=== PATIENT | male | born 1990 | race Caucasian/White ===

== ENCOUNTER 2022-04-16 17:23 | Emergency (ER) | payer SELFPAY ==
[2022-04-16] VITALS (19 sets, daily range): BP systolic 123–180; BP diastolic 62–98; PULSE 70–103; RESP 9–48; TEMP 36.6; O2SAT 97–100
--- NOTE | 2022-04-16 17:43 | DI.CT.S_ITS ---
PROCEDURE: CT ABDOMEN PELVIS W CON INDICATIONS: severe abd pain TECHNIQUE: After the administration of intravenous contrast, axial sections acquired from the lung bases to the pubic symphysis. Coronal and sagittal reformats were performed. For radiation dose reduction, the following was used: automated exposure control, adjustment of mA and/or kV according to patient size. COMPARISON: None. FINDINGS: Image quality: Excellent. Lung bases: Unremarkable. Heart: No significant findings. ABDOMEN: Liver: Unremarkable. Gallbladder: Unremarkable. Biliary ducts: Unremarkable. Pancreas: Unremarkable. Spleen: Unremarkable. Adrenal Glands: Unremarkable. Kidneys and Ureters: The left kidney has a 1.2 x 0.9 cm stone in the renal pelvis. There is minimal left hydronephrosis with mild inflammatory changes around the renal pelvis. The stone is likely intermittently obstructive. No ureteral dilatation. Stomach and Bowel: Stomach, small bowel loops, and colon are unremarkable. The appendix is normal. Peritoneum: No abnormal intraperitoneal fluid. No free air. Ventral Wall: No hernias. Abdominal Nodes: No retroperitoneal or mesenteric adenopathy by size criteria. Vessels: Aorta and inferior vena cava are normal in size. PELVIS: Pelvic Organs: Unremarkable. Bladder: Unremarkable. Pelvic Nodes: No enlarged lymph nodes. Miscellaneous: No hernias are seen. Bones: Unremarkable. IMPRESSION: 1. 1.2 x 0.9 cm stone in the left renal pelvis. 2. Minimal left hydronephrosis and mild inflammatory changes around the renal pelvis, the stone is likely intermittently obstructive. 3. No other acute abdominal or pelvic abnormality. Dictated by: John Aldana M.D. on 04/16/2022 at 18:31 Approved by: John Aldana M.D. on 04/16/2022 at 18:36
[2022-04-16] MEDS: ONDANSETRON 4 MG/2 ML INJ IV (17:46)
[2022-04-16] MEDS: HYDROMORPHONE 1 MG INJ IV (17:46)
[2022-04-16] MEDS: SODIUM CHLORIDE 0.9% 1,000 ML 1000 ML IV (17:46)
[2022-04-16 17:52] LABS: Add Manual Diff / Slide Review NO; Basophils Absolute Auto 100 /uL (0-100); Basophils Percent Auto 0.9 % (0-2); Eosinophils Absolute Auto 100 /uL (0-450); Eosinophils Percent Auto 0.4 % (2-4); Hematocrit 42.6 % (41-53); Hemoglobin 15.2 g/dL (13.5-17.5); Lymphocytes Absolute Auto 1900 /uL (1100-4500); Lymphocytes Percent Auto 12.7 % (25-40); Mean Corpuscular HGB Conc 35.7 % (30-36); Mean Corpuscular Hemoglobin 31.4 PG (26-34); Mean Corpuscular Volume 87.9 fL (80-100); Monocytes Absolute Auto 900 /uL (0-900); Monocytes Percent Auto 5.8 % (3-14); Neutrophils Absolute Auto 11900 /uL (1500-7000); Neutrophils Percent Auto 80.2 % (50-75); Platelet Count 273 X10^3/uL (150-400); Red Blood Cell Count 4.84 X10^6/uL (4.5-5.9); Red Cell Distribution Width 12.9 % (11.6-14.8); White Blood Cell Count 14.9 X10^3/uL (4.5-11.0)
[2022-04-16 17:57] LABS: Alanine Aminotransferase 19 IU/L (<50); Albumin 4.6 g/dL (3.5-5.0); Albumin Globulin Ratio 1.5 (1.0-2.8); Alkaline Phosphatase 84 U/L (38-126); Aspartate Aminotransferase 22 IU/L (17-59); BUN Creatinine Ratio 13.3 (6-22); Bilirubin Total 0.7 mg/dL (0.2-1.3); Blood Urea Nitrogen 11 mg/dL (9-20); Calcium 9.3 mg/dL (8.4-10.2); Carbon Dioxide 21 mmol/L (22-32); Chloride 104 mmol/L (98-107); Estimated Glomerular Filt Rate > 60 mL/min (>60); Globulin 3.1 g/dL (1.7-4.1); Glucose 128 mg/dL (70-100); HEMOLYSIS < 15 (0-50); Lactate (Lactic Acid) 3.1 mmol/L (0.7-2.1); Lipase 47 U/L (23-300); Potassium 3.8 mmol/L (3.4-5.1); Sodium 139 mmol/L (137-145); Total Protein 7.7 g/dL (6.3-8.2)
[2022-04-16 17:58] LABS: Magnesium 1.9 mg/dL (1.6-2.3)
[2022-04-16] MEDS: HYDROMORPHONE 0.5 MG INJ IV ×3 (18:01→22:06)
--- NOTE | 2022-04-16 19:30 | ED_ITS ---
HPI - Abdominal Pain General Chief Complaint: Abdominal Pain Stated Complaint: severe abd pain Time Seen by Provider: 04/16/22 17:24 Source: patient and family Mode of arrival: Wheelchair Limitations: no limitations History of Present Illness HPI narrative: This is a 32-year-old male with possible lymphoma he is currently being worked up but in between insurance for spots in his lungs. He presents today with sev ere abdominal pain that is always been on the left side sometimes in the flank that comes and goes. He has been taking ibuprofen regularly for this sometimes up to 800 mg 3 or 4 times daily. Patient states today became quite severe just on the left, was having some nausea and vomiting as well as some diarrhea he is occasionally had blood in his stool. Patient denies any dysuria, urgency frequency or hematuria. Denies any syncope. He denies any chest pain or shortness of breath. Received pain medications and is feeling much improved. He denies any surgeries. Has never seen a urologist but has been told he is had kidney stones in the past but they were usually on the right. Patient denies any drug allergies. Related Data Previous Rx's Medication Instructions Recorded cephalexin 500 mg capsule 500 mg PO BID 7 days #14 caps 04/16/22 oxycodone 5 mg tablet 5 mg PO Q6H PRN pain #20 tabs 04/16/22 Allergies Allergy/AdvReac Type Severity Reaction Status Date / Time No Known Drug Allergies Allergy Verified 04/16/22 17:52 Review of Systems Review of Systems ROS Unobtainable: All systems reviewed & are unremarkable except as noted in HPI and below Patient History Social History Smoking Status: Current every day smoker Smoking Status: Current every day smoker alcohol intake frequency: 3 or more drinks per day Substance Use Type: marijuana Exam Narrative Exam Narrative: GENERAL: Alert and oriented x three, mild distress. HEENT: Head normocephalic, atraumatic, EOMI, pupils reactive, face symmetric, moist mucous membranes NECK: Supple, full range of motion CARDIOVASCULAR: Regular rate and rhythm without murmurs, rubs or gallops. RESPIRATORY: Breath sounds equal bilaterally, no wheezes rales or rhonchi. ABDOMEN: Soft, nontender. Normoactive bowel sounds all 4 quadrants. No guardi ng or rebound, rigidity, no mass : No CVA tenderness EXTREMITIES: Normal range of motion, no clubbing or edema. Neurovascularly intact NEUROLOGICAL: Cranial nerves II through XII grossly intact. Moving all extremities SKIN: Warm, dry, no petechiae, no rashes or lesions. Initial Vital Signs Initial Vital Signs: Vital Signs Pulse Rate 101 H 04/16/22 17:41 Respiratory Rate 40 H 04/16/22 17:41 Blood Pressure 155/89 H 04/16/22 17:41 Pulse Oximetry 97 04/16/22 17:41 Course Orders Ordered: ED Orders 04/16/22 20:33 UA Complete [Urinalysis and Microscopic] Stat Urine Culture Stat 04/16/22 21:31 Consult to WELLNESS MANAGER - Lining Stitcher Stat Discontinued Medications Cefazolin Sodium (Cephalexin 250 Mg Prepack) 1 bottle MISC SEEINSTR ONE Stop: 04/16/22 21:31 Last Admin: 04/16/22 22:05 Dose: 2 cap Documented By: MOSES Hydromorphone HCl (Hydromorphone 1 Mg Inj) 1 mg IV NOW ONE Stop: 04/16/22 17:43 Last Admin: 04/16/22 17:46 Dose: 1 mg Documented By: DANIELLE Hydromorphone HCl (Hydromorphone 0.5 Mg Inj) 0.5 mg IV Q15MIN PRN PRN Reason: Pain, Last Admin: 04/16/22 18:16 Dose: 0.5 mg Documented By: Admin: 04/16/22 18:01 Dose: 0.5 mg Documented By: DANIELLE Hydromorphone HCl (Hydromorphone 0.5 Mg Inj) 0.5 mg IV NOW ONE Stop: 04/16/22 21:31 Last Admin: 04/16/22 22:06 Dose: 0.5 mg Documented By: MOSES Sodium Chloride (Normal Saline 0.9%) 1,000 mls @ 1,000 mls/hr IV BOLUS ONE Stop: 04/16/22 18:41 Last Infusion: 04/16/22 19:58 Dose: 1,000 mls/hr Documented By: Admin: 04/16/22 17:46 Dose: 1,000 mls/hr Documented By: DANIELLE Ondansetron HCl (Ondansetron 4 Mg/2 Ml Inj) 4 mg IV NOW ONE Stop: 04/16/22 17:43 Last Admin: 04/16/22 17:46 Dose: 4 mg Documented By: DANIELLE Oxycodone/Acetaminophen (Oxycodone/Apap 5/325 Prepack) 1 bottle MISC SEEINSTR ONE Stop: 04/16/22 21:32 Last Admin: 04/16/22 22:06 Dose: 1 bottle Documented By: MOSES Consultations Consultation #1: Urology [facility], Dr. Sparrow Vital Signs Vital signs: Vital Signs - 8 hr 04/16/22 22:00 04/16/22 22:16 04/16/22 22:16 Pulse Rate 70 98 H Respiratory Rate 15 Blood Pressure 135/82 Pulse Oximetry 99 98 MDM - Abdominal Pain Lab Data Result diagrams: 04/16/22 17:35 04/16/22 17:35 Labs: Lab Results 04/16/22 04/16/22 04/16/22 Range/Units 17:35 17:35 17:35 WBC 14.9 H (4.5-11.0) X10^3/uL RBC 4.84 (4.5-5.9) X10^6/uL Hgb 15.2 (13.5-17.5) g/dL Hct 42.6 (41-53) % MCV 87.9 (80-100) fL MCH 31.4 (26-34) PG MCHC 35.7 (30-36) % RDW 12.9 (11.6-14.8) % Plt Count 273 (150-400) X10^3/uL Neut % (Auto) 80.2 H (50-75) % Lymph % (Auto) 12.7 L (25-40) % Freeborn % (Auto) 5.8 (3-14) % Eos % (Auto) 0.4 L (2-4) % Baso % (Auto) 0.9 (0-2) % Neut # (Auto) 00460 H (9469-4670) /uL Lymph # (Auto) 1900 (0497-1393) /uL Freeborn # (Auto) 900 (0-900) /uL Eos # (Auto) 100 (0-450) /uL Baso # (Auto) 100 (0-100) /uL Sodium 139 (137-145) mmol/L Potassium 3.8 (3.4-5.1) mmol/L Chloride 104 (98-107) mmol/L Carbon Dioxide 21 L (22-32) mmol/L BUN 11 (9-20) mg/dL Creatinine 0.83 (0.66-1.25) mg/dL Estimated GFR > 60 (>60) mL/min BUN/Creatinine Ratio 13.3 (6-22) Glucose 128 H (70-100) mg/dL Lactate 3.1 H (0.7-2.1) mmol/L Calcium 9.3 (8.4-10.2) mg/dL Magnesium (1.6-2.3) mg/dL Total Bilirubin 0.7 (0.2-1.3) mg/dL AST 22 (17-59) IU/L ALT 19 (<50) IU/L Alkaline Phosphatase 84 (38-126) U/L Total Protein 7.7 (6.3-8.2) g/dL Albumin 4.6 (3.5-5.0) g/dL Globulin 3.1 (1.7-4.1) g/dL Albumin/Globulin Ratio 1.5 (1.0-2.8) Lipase 47 (23-300) U/L Urine Color Urine Appearance Urine pH (4.5-8.0) Ur Specific Baxter (1.000-1.035) Urine Protein (Negative) Urine Glucose (UA) (Negative) g/dL Urine Ketones (NEGATIVE) Urine Occult Blood (Negative) Urine Nitrate (Negative) Urine Bilirubin (NEGATIVE) Urine Urobilinogen (0.2) E.U./dL Ur Leukocyte Esterase (NEGATIVE) Urine RBC (0-5/HPF) Urine WBC (0-5/HPF) Ur Squamous Epith Cells (0-5/HPF) Urine Bacteria (None) Urine Mucus (Negative) Ur Culture Indicated? 04/16/22 04/16/22 04/16/22 Range/Units 17:35 19:58 20:33 WBC (4.5-11.0) X10^3/uL RBC (4.5-5.9) X10^6/uL Hgb (13.5-17.5) g/dL Hct (41-53) % MCV (80-100) fL MCH (26-34) PG MCHC (30-36) % RDW (11.6-14.8) % Plt Count (150-400) X10^3/uL Neut % (Auto) (50-75) % Lymph % (Auto) (25-40) % Freeborn % (Auto) (3-14) % Eos % (Auto) (2-4) % Baso % (Auto) (0-2) % Neut # (Auto) (3414-8616) /uL Lymph # (Auto) (4977-6176) /uL Freeborn # (Auto) (0-900) /uL Eos # (Auto) (0-450) /uL Baso # (Auto) (0-100) /uL Sodium (137-145) mmol/L Potassium (3.4-5.1) mmol/L Chloride (98-107) mmol/L Carbon Dioxide (22-32) mmol/L BUN (9-20) mg/dL Creatinine (0.66-1.25) mg/dL Estimated GFR (>60) mL/min BUN/Creatinine Ratio (6-22) Glucose (70-100) mg/dL Lactate 1.2 (0.7-2.1) mmol/L Calcium (8.4-10.2) mg/dL Magnesium 1.9 (1.6-2.3) mg/dL Total Bilirubin (0.2-1.3) mg/dL AST (17-59) IU/L ALT (<50) IU/L Alkaline Phosphatase (38-126) U/L Total Protein (6.3-8.2) g/dL Albumin (3.5-5.0) g/dL Globulin (1.7-4.1) g/dL Albumin/Globulin Ratio (1.0-2.8) Lipase (23-300) U/L Urine Color Yellow Urine Appearance Sl cloudy Urine pH 8.5 H (4.5-8.0) Ur Specific Baxter 1.010 (1.000-1.035) Urine Protein 1+ H (Negative) Urine Glucose (UA) Negative (Negative) g/dL Urine Ketones Trace H (NEGATIVE) Urine Occult Blood 3+ H (Negative) Urine Nitrate Negative (Negative) Urine Bilirubin Negative (NEGATIVE) Urine Urobilinogen 0.2 (0.2) E.U./dL Ur Leukocyte Esterase Trace H (NEGATIVE) Urine RBC 30-100/hpf H (0-5/HPF) Urine WBC 5-10/hpf H (0-5/HPF) Ur Squamous Epith Cells 0-1 /hpf (0-5/HPF) Urine Bacteria None seen (None) Urine Mucus 1+ H (Negative) Ur Culture Indicated? Specimen cultured Imaging Data CT scan - abdomen/pelvis: Radiologist's Impression: David Mosher??32??M??1990 ? Allergy/Adv: No Known Drug Allergies (More??) Close Abdomen/Pelvis CT (Signed) John Aldana - 04/16/22 [address] [address] CT Scan Report Signed Patient: David Pradhan MR#: [id number] : 1990 Acct:[id number] Age/Sex: 32 / M Date of Service: 04/16/22 Loc: ED Accession Number: [id number] ?? Procedure: CT abdomen pelvis w con Ordering Provider: Estelle Metcalf MD PROCEDURE:? CT ABDOMEN PELVIS W CON ? INDICATIONS:? severe abd pain ? TECHNIQUE:? After the administration of intravenous contrast, axial sections acquired from the lung bases to the pubic symphysis.? Coronal and sagittal reformats were performed.? For radiation dose reduction, the following was used:? automated exposure control, adjustment of mA and/or kV according to patient size.? ? COMPARISON:? None. ? FINDINGS:? Image quality:? Excellent.? ? Lung bases:? Unremarkable. Heart:? No significant findings. ? ABDOMEN: Liver:? Unremarkable.? ? Gallbladder:? Unremarkable.? ? Biliary ducts:? Unremarkable.? ? Pancreas:? Unremarkable.? ? Spleen:? Unremarkable.? ? Adrenal Glands:? Unremarkable.? ? Kidneys and Ureters:? The left kidney has a 1.2 x 0.9 cm stone in the renal pelvis.? There is minimal left hydronephrosis with mild inflammatory changes around the renal pelvis.? The stone is likely intermittently obstructive.? No ureteral dilatation. ? Stomach and Bowel:? Stomach, small bowel loops, and colon are unremarkable.? The appendix is normal. Peritoneum:? No abnormal intraperitoneal fluid.? No free air.? ? Ventral Wall: ? No hernias.? Abdominal Nodes:? No retroperitoneal or mesenteric adenopathy by size criteria.? Vessels:? Aorta and inferior vena cava are normal in size.? ? PELVIS: Pelvic Organs:? Unremarkable.? ? Bladder:? Unremarkable.? ? Pelvic Nodes: No enlarged lymph nodes.? Miscellaneous: No hernias are seen. ? ? ? Bones:? Unremarkable.? ? ? IMPRESSION:? 1. 1.2 x 0.9 cm stone in the left renal pelvis. 2. Minimal left hydronephrosis and mild inflammatory changes around the renal pelvis, the stone is likely intermittently obstructive. 3. No other acute abdominal or pelvic abnormality.? ? ? Dictated by: John Aldana M.D. on 04/16/2022 at 18:31 ? ? Approved by: John Aldana M.D. on 04/16/2022 at 18:36 MDM Narrative Medical decision making narrative: This is a 32-year-old male with intermittent left abdominal and flank pain became quite sudden in worse today. Patient was quite painful until he had narcotic pain medication he has improved after several doses, has normal renal function but does appear to have a large stone in the renal pelvis which may be having some obstructive properties with some minimal left hydro and mild inflammatory changes at the renal pelvis no other acute changes on CT. Patient does have a white count of 14, lactate was 3.1 but on recheck is 1.2 with otherwise normal LFTs and creatinine. Urine shows a pH of 8.5, trace ketones, 3+ blood trace leuks 5-10 wbc's with no bacteria and was cultured. We do not have in-house urology today but urology was consulted, this patient's pain is controlled here at this time they feel appropriate for discharge home, pain management no Flomax and follow-up for treatment. Discussed with patient return precautions he feels comfortable with this plan he has been significantly improved in pain although starting to have some slight increased prior discharge given 1 additional dose of pain medication. Discharge Plan Departure Patient Disposition: Home Clinical Impression: Calculus of left kidney Instructions: DI for Kidney Stones Activity Restrictions/Additional Instructions: Please follow-up with urology, referral is included below as well as local urology. Please call in the morning or Monday morning to set up an appointment. You have a large stone in the renal pelvis that likely blocks the urine from draining intermittently. You can take Tylenol up to a 1000 mg every 6 hours needed for pain. You can take ibuprofen up to 800 mg every 8 hours as needed for pain. If in adequate you can take oxycodone 1-2 tablets every 4-6 hours as needed for pain. Prescription sent to Please return for fevers, recurrent, persistent abdominal or flank pain, persistent vomiting, passing out, new GI or urinary symptoms or other new or concerning changes. Prescriptions: New oxycodone 5 mg tablet 5 mg PO Q6H PRN (Reason: pain) Qty: 20 0RF cephalexin 500 mg capsule 500 mg PO BID 7 Days Qty: 14 0RF Referrals: Joseph Guzman MD [Physician] - Igor Sparrow MD [Non-Staff] - Visit Report Forms: Patient Portal/API
[2022-04-16 19:46] LABS: Reflexed Lactate in 2 Hours Y
[2022-04-16 20:16] LABS: Lactate 2HR (Lactic Acid Rflx) 1.2 mmol/L (0.7-2.1)
[2022-04-16 20:44] LABS: Appearance Urine UA SL CLOUDY; Bilirubin Urine UA NEGATIVE (NEGATIVE); Color Urine UA YELLOW; Glucose Urine UA NEGATIVE (Negative); Ketones Urine UA TRACE (NEGATIVE); Leukocyte Esterase Urine UA TRACE (NEGATIVE); Nitrite Urine UA NEGATIVE (Negative); Occult Blood Urine UA 3+ (Negative); Protein Urine UA 1+ (Negative); Urobilinogen Urine UA 0.2 E.U./dL (0.2); pH Urine UA 8.5 (4.5-8.0)
[2022-04-16 21:07] LABS: Bacteria Urine None Seen; Culture Indicated Urine Specimen Cultured; Mucus Urine 1+ (Negative); RBC Urine 30-100/HPF (0-5/HPF); Squamous Epithelial Cell Urine 0-1 /HPF (0-5/HPF); WBC Urine 5-10/HPF (0-5/HPF)
[2022-04-16] MEDS: cephALEXin 250 MG PREPACK 1 BOTTLE MISC (22:05)
[2022-04-16] MEDS: OXYCODONE/APAP 5/325 PREPACK 1 BOTTLE MISC (22:06)
== END 2022-04-16 22:19 | disposition home or self-care (01) ==
PROVIDERS: Emergency Medicine; Emergency Provider Emergency Medicine
DX: N20.0 Calculus of kidney (principal); R11.2 Nausea with vomiting, unspecified; R79.89 Other specified abnormal findings of blood chemistry
CPT/HCPCS: 36415; 74177; 80053; 81001; 83605; 83690; 83735; 85025; 87040; 87086; 96361; 96374; 96375; 96376; 99284; J1170; J2405; Q9967

== ENCOUNTER 2022-06-28 14:05 | Emergency (ER) | payer MEDICAID, SELFPAY ==
[2022-06-28 14:10] VITALS: BP 174/90; PULSE 80; RESP 16; O2SAT 98
--- NOTE | 2022-06-28 14:15 | ED.GENADULT ---
HPI - General Adult <Red Garcia PA-C - Last Filed: 06/28/22 17:39> General Chief complaint: Urogenital-Male Stated complaint: flank pain/ h/o kidney stones History of Present Illness HPI narrative: 32-year-old male with past medical history nephrolithiasis presents to the ED with 1 day of left-sided abdominal pain. Patient states that there was acute onset of pain at 6:30 a.m. this morning, along with nausea and vomiting. Patient endorses chills but denies fever. Patient states that he has some difficulty urinating, feels like he needs to urinate but is unable to. Patient was seen in the ED in March 2022 and diagnosed with?1.2 x 0.9 cm stone in the left renal pelvis. Patient was recommended to follow-up with urology, however patient has been unable to do so thus far. Patient states that since he was seen in the ED, he has had intermittent left-sided abdominal pain that he has been managing with [id number] pain medications and some left over oxycodone. Related Data Previous Rx's Medication Instructions Recorded oxycodone 5 mg tablet 5 mg PO Q6H PRN pain #20 tabs 04/16/22 ondansetron 4 mg disintegrating 4 mg PO Q8H PRN nausea and 06/28/22 tablet vomiting #20 tabs tamsulosin 0.4 mg capsule 0.4 mg PO BEDTIME #20 caps 06/28/22 tramadol 50 mg tablet 50 mg PO Q6H PRN pain 7 days #30 06/28/22 tabs Allergies Allergy/AdvReac Type Severity Reaction Status Date / Time No Known Drug Allergies Allergy Verified 04/16/22 17:52 Review of Systems <Red Garcia PA-C - Last Filed: 06/28/22 17:39> Review of Systems ROS Unobtainable: All systems reviewed & are unremarkable except as noted in HPI and below Constitutional Constitutional: Denies chills, Denies fatigue, Denies fever(s), Denies frequent falls, Denies lethargy and Denies weakness Eyes Eyes: Denies change in vision, Denies eye discharge, Denies irritation and Denies loss of vision ENT Ears, Nose, Mouth, and Throat: Denies change in voice, Denies dizziness, Denies neck pain, Denies sore throat and Denies throat swelling Cardiovascular Cardiovascular: Denies chest pain, Denies irregular heart rhythm, Denies lightheadedness, Denies palpitations, Denies dyspnea, Denies dyspnea on exertion and Denies orthopnea Respiratory Respiratory: Denies cough, Denies dyspnea, Denies dyspnea on exertion and Denies wheezing Gastrointestinal Gastrointestinal: Reports abdominal pain, Denies change in bowel habits, Denies diarrhea, Reports nausea and Reports vomiting Genitourinary Genitourinary: Denies hematuria, Denies flank pain, Reports urinary hesitancy, Denies urinary incontinence and Denies urinary urgency Musculoskeletal Musculoskeletal: Denies back pain, Denies muscle weakness, Denies neck pain, Denies numbness and Denies tingling Integumentary/Breasts Skin/Breast: Denies pruritus, Denies erythema, Denies rash and Denies wounds Neurologic Neurologic: Denies behavioral changes, Denies confusion, Denies dizziness, Denies frequent falls, Denies loss of vision, Denies numbness, Denies tingling and Denies weakness Psychiatric Psychiatric: Denies anxiety, Denies behavioral changes, Denies confusion, Denies depression, Denies homicidal ideation and Denies suicidal ideation Endocrine Endocrine: Denies fatigue, Denies flushing and Denies palpitations Hematologic/Lymphatic Hematologic/Lymphatic: Denies easy bruising Allergic/Immunologic Allergic/Immunologic: Denies urticaria, Denies throat swelling and Denies wheezing Patient History <Red Garcia PA-C - Last Filed: 06/28/22 17:39> Medical History Left renal stone Social History Smoking Status: Current every day smoker Smoking Status: Current every day smoker alcohol intake frequency: 3 or more drinks per day Substance Use Type: marijuana Exam <Red Garcia PA-C - Last Filed: 06/28/22 17:39> Narrative Exam Narrative: Const General:?cooperative, healthy appearing and comfortable [facility] [place] Head:?normal to inspection Ears:?hearing grossly normal bilaterally Nose:?external nose normal Face and sinus:?normal facial exam and sinuses nontender Mouth:?oral mucosae normal Throat:?posterior oropharynx normal Eyes General:?appearance normal, both eyes and all related structures Neck Neck:?normal visual inspection and no lymphadenopathy noted Resp Effort & Inspection:?normal respiratory effort Auscultation:?clear to auscultation bilaterally Cardio Rate:?regular rate Rhythm:?regular rhythm GI Abdomen is soft, nondistended. Tender to palpation in the suprapubic and left quadrants. Marked L sided CVA tenderness. Neuro General:?patient alert, patient awake and patient oriented x3 Initial Vital Signs Initial Vital Signs: Vital Signs Pulse Rate 80 06/28/22 14:10 Respiratory Rate 16 06/28/22 14:10 Blood Pressure 174/90 H 06/28/22 14:10 Pulse Oximetry 98 06/28/22 14:10 Oxygen Delivery Method 06/28/22 14:10 <DO Lisa Velez Last Filed: 06/28/22 17:53> Initial Vital Signs Initial Vital Signs: Vital Signs Pulse Rate 80 06/28/22 14:10 Respiratory Rate 16 06/28/22 14:10 Blood Pressure 174/90 H 06/28/22 14:10 Pulse Oximetry 98 06/28/22 14:10 Oxygen Delivery Method 06/28/22 14:10 Course <Red Garcia PA-C - Last Filed: 06/28/22 17:39> Orders Ordered: ED Orders 06/28/22 14:22 CT abdomen pelvis w con Stat 06/28/22 14:40 CBC Auto Diff [Complete Blood Count AUTO DIFF] Stat CMP [Comprehensive Metabolic Panel] Stat Lactate (Lactic Acid) Stat Lipase Stat 06/28/22 16:51 Urinalysis and Microscopic Stat Discontinued Medications Ketorolac Tromethamine (Ketorolac 30 Mg/Ml Vial) 15 mg IV NOW ONE Stop: 06/28/22 14:19 Last Admin: 06/28/22 14:21 Dose: 15 mg Documented By: CÉSAR Vital Signs Vital signs: Vital Signs - 8 hr 06/28/22 14:19 06/28/22 14:10 06/28/22 16:16 Temperature 98.0 F Pulse Rate 81 80 79 Respiratory Rate 20 16 Blood Pressure 147/90 H 174/90 H 122/57 L Pulse Oximetry 100 98 97 Oxygen Delivery Method Room Air Room Air Room Air 06/28/22 17:50 Temperature 97.8 F Pulse Rate 80 Respiratory Rate Blood Pressure 107/55 L Pulse Oximetry 96 Oxygen Delivery Method Room Air <DO Lisa Velez Last Filed: 06/28/22 17:53> Orders Ordered: ED Orders 06/28/22 14:22 CT abdomen pelvis w con Stat 06/28/22 14:40 CBC Auto Diff [Complete Blood Count AUTO DIFF] Stat CMP [Comprehensive Metabolic Panel] Stat Lactate (Lactic Acid) Stat Lipase Stat 06/28/22 16:51 Urinalysis and Microscopic Stat Discontinued Medications Ketorolac Tromethamine (Ketorolac 30 Mg/Ml Vial) 15 mg IV NOW ONE Stop: 06/28/22 14:19 Last Admin: 06/28/22 14:21 Dose: 15 mg Documented By: RB Vital Signs Vital signs: Vital Signs - 8 hr 06/28/22 14:19 06/28/22 14:10 06/28/22 16:16 Temperature 98.0 F Pulse Rate 81 80 79 Respiratory Rate 20 16 Blood Pressure 147/90 H 174/90 H 122/57 L Pulse Oximetry 100 98 97 Oxygen Delivery Method Room Air Room Air Room Air 06/28/22 17:50 Temperature 97.8 F Pulse Rate 80 Respiratory Rate Blood Pressure 107/55 L Pulse Oximetry 96 Oxygen Delivery Method Room Air Medical Decision Making <Red Garcia PA-C - Last Filed: 06/28/22 17:39> Lab Data Result diagrams: 06/28/22 14:40 06/28/22 14:40 Labs: Lab Results 06/28/22 06/28/22 06/28/22 Range/Units 14:40 14:40 14:40 WBC 10.5 (4.5-11.0) X10^3/uL RBC 4.44 L (4.5-5.9) X10^6/uL Hgb 14.0 (13.5-17.5) g/dL Hct 40.3 L (41-53) % MCV 90.6 (80-100) fL MCH 31.5 (26-34) PG MCHC 34.8 (30-36) % RDW 13.3 (11.6-14.8) % Plt Count 218 (150-400) X10^3/uL Neut % (Auto) 82.5 H (50-75) % Lymph % (Auto) 10.5 L (25-40) % [place] % (Auto) 5.3 (3-14) % Eos % (Auto) 1.2 L (2-4) % Baso % (Auto) 0.5 (0-2) % Neut # (Auto) 8700 H (6081-4683) /uL Lymph # (Auto) 1100 (1207-8692) /uL [place] # (Auto) 600 (0-900) /uL Eos # (Auto) 100 (0-450) /uL Baso # (Auto) 100 (0-100) /uL Sodium 139 (137-145) mmol/L Potassium 4.3 (3.4-5.1) mmol/L Chloride 104 (98-107) mmol/L Carbon Dioxide 27 (22-32) mmol/L BUN 11 (9-20) mg/dL Creatinine 0.79 (0.66-1.25) mg/dL Estimated GFR > 60 (>60) mL/min BUN/Creatinine Ratio 13.9 (6-22) Glucose 101 H (70-100) mg/dL Lactate 1.4 (0.7-2.1) mmol/L Calcium 8.8 (8.4-10.2) mg/dL Total Bilirubin 0.5 (0.2-1.3) mg/dL AST 25 (17-59) IU/L ALT 17 (<50) IU/L Alkaline Phosphatase 72 (38-126) U/L Total Protein 7.2 (6.3-8.2) g/dL Albumin 4.3 (3.5-5.0) g/dL Globulin 2.9 (1.7-4.1) g/dL Albumin/Globulin Ratio 1.5 (1.0-2.8) Lipase 41 (23-300) U/L Urine Color Urine Appearance Urine pH (4.5-8.0) Ur Specific [place] (1.000-1.035) Urine Protein (Negative) Urine Glucose (UA) (Negative) g/dL Urine Ketones (NEGATIVE) Urine Occult Blood (Negative) Urine Nitrate (Negative) Urine Bilirubin (NEGATIVE) Urine Urobilinogen (0.2) E.U./dL Ur Leukocyte Esterase (NEGATIVE) 06/28/22 Range/Units 16:51 WBC (4.5-11.0) X10^3/uL RBC (4.5-5.9) X10^6/uL Hgb (13.5-17.5) g/dL Hct (41-53) % MCV (80-100) fL MCH (26-34) PG MCHC (30-36) % RDW (11.6-14.8) % Plt Count (150-400) X10^3/uL Neut % (Auto) (50-75) % Lymph % (Auto) (25-40) % [place] % (Auto) (3-14) % Eos % (Auto) (2-4) % Baso % (Auto) (0-2) % Neut # (Auto) (6520-5816) /uL Lymph # (Auto) (5365-2084) /uL [place] # (Auto) (0-900) /uL Eos # (Auto) (0-450) /uL Baso # (Auto) (0-100) /uL Sodium (137-145) mmol/L Potassium (3.4-5.1) mmol/L Chloride (98-107) mmol/L Carbon Dioxide (22-32) mmol/L BUN (9-20) mg/dL Creatinine (0.66-1.25) mg/dL Estimated GFR (>60) mL/min BUN/Creatinine Ratio (6-22) Glucose (70-100) mg/dL Lactate (0.7-2.1) mmol/L Calcium (8.4-10.2) mg/dL Total Bilirubin (0.2-1.3) mg/dL AST (17-59) IU/L ALT (<50) IU/L Alkaline Phosphatase (38-126) U/L Total Protein (6.3-8.2) g/dL Albumin (3.5-5.0) g/dL Globulin (1.7-4.1) g/dL Albumin/Globulin Ratio (1.0-2.8) Lipase (23-300) U/L Urine Color Yellow Urine Appearance Sl cloudy Urine pH 8.5 H (4.5-8.0) Ur Specific [place] 1.010 (1.000-1.035) Urine Protein 1+ H (Negative) Urine Glucose (UA) Negative (Negative) g/dL Urine Ketones Negative (NEGATIVE) Urine Occult Blood 3+ H (Negative) Urine Nitrate Negative (Negative) Urine Bilirubin Negative (NEGATIVE) Urine Urobilinogen 0.2 (0.2) E.U./dL Ur Leukocyte Esterase Negative (NEGATIVE) Urine Dip Bedside Urine Glucose Negative Bedside Urine Bilirubin - Negative Bedside Urine Ketone - Negative Urine Specific [place] 1.000 Bedside Urine Occult Blood +++ Bedside Urine pH 8.5 Bedside Urine Protein +/- 15 Bedside Urine Urobilinogen 0.2 Bedside Urine Nitrite - Negative Point of care testing: Urine Dip Bedside Urine Glucose Negative Bedside Urine Bilirubin - Negative Bedside Urine Ketone - Negative Urine Specific [place] 1.000 Bedside Urine Occult Blood +++ Bedside Urine pH 8.5 Bedside Urine Protein +/- 15 Bedside Urine Urobilinogen 0.2 Bedside Urine Nitrite - Negative Imaging Data CT scan - abdomen/pelvis: Radiologist's Impression: PROCEDURE:? CT ABDOMEN PELVIS W CON ? INDICATIONS:? L abd pain;?nephrolithisis ? TECHNIQUE:? After the administration of intravenous contrast, axial sections acquired from the lung bases to the pubic symphysis.? Coronal and sagittal reformats were performed.? For radiation dose reduction, the following was used:? automated exposure control, adjustment of mA and/or kV according to patient size.? ? COMPARISON:? [facility], CT, CT ABDOMEN PELVIS W CON, 04/16/2022, 18:14. ? FINDINGS:? Image quality:? Excellent.? ? Lung bases:? Unremarkable. Heart:? No significant findings. ? ABDOMEN: Liver:? Unremarkable.? ? Gallbladder:? Gallbladder is within normal limits. Biliary ducts:? Unremarkable.? ? Pancreas:? Unremarkable.? ? Spleen:? Unremarkable.? ? Adrenal Glands:? Unremarkable.? ? Kidneys and Ureters:? 1.3 x 0.9 cm stone in left renal pelvis unchanged from prior study and measures 1212 Hounsfield unit in density.? Additional nonobstructing stone in midpole left kidney measures 4 mm is also seen and unchanged.? There is mild prominence of left renal pelvis and mild left perinephric fat stranding.? No hydroureter.? No right-sided renal stone or hydronephrosis. ? Stomach and Bowel:? There is no bowel obstruction.? No gastric or small bowel wall thickening.? Appendix is visualized and is normal in size and appearance.? There is suggestion of wall thickening involving transverse colon, descending colon and sigmoid colon with mild narrowing of the lumen.? No significant pericolonic fat stranding.? No abscess collection. Peritoneum:? No abnormal intraperitoneal fluid.? No free air.? ? Ventral Wall: ? No hernias.? Abdominal Nodes:? No retroperitoneal or mesenteric adenopathy by size criteria.? Vessels:? Aorta and inferior vena cava are normal in size.? ? PELVIS: Pelvic Organs:? Unremarkable.? ? Bladder:? Unremarkable.? ? Pelvic Nodes: No enlarged lymph nodes.? Miscellaneous: No hernias are seen. ? ? ? Bones:? No suspicious bony lesions.? No acute vertebral body compression fracture.? Degenerative disc disease at L5-S1 level is seen. ? ? IMPRESSION:? ? 1. 1.3 x 0.9 cm stone in left renal pelvis with mild left-sided hydronephrosis as described above suggestive of intermittently obstructing left renal stone.? No hydroureter.? No right-sided stone or hydronephrosis. ? 2. Normal appendix.? No bowel obstruction.? No gastric or small bowel wall thickening. ? 3. Suggestion of mild colitis involving transverse colon, descending colon and sigmoid colon.? No abscess collection.? No free fluid or free air.? ? ? Dictated by: Evaristo Fritz M.D. on 06/28/2022 at 15:43 ? ? Approved by: Evaristo Fritz M.D. on 06/28/2022 at 15:47 ? MDM Narrative Medical decision making narrative: 32-year-old male with past medical history nephrolithiasis presents to the ED with 1 day of left-sided abdominal pain. Concern for nephrolithiasis versus UTI versus pyelonephritis versus diverticulitis versus other intra-abdominal pathology. Will obtain labs, lactate, lipase, UA, CT abdomen pelvis. Patient was given fentanyl, Zofran by EMS, patient was still writhing in pain in the ED. patient was given 15 of ketorolac IV with good pain relief. Will reassess. Labs within normal limits, UA without UTI. CT abdomen pelvis shows a 1.3 by 0.9 cm stone in the left renal pelvis with mild left-sided hydronephrosis suggestive of intermittently obstructing left renal stone. This is the same stone that was seen on CT in March as well. Discussed with patient that he will likely need intervention from Urology to address the stone. Patient agrees to follow-up with [facility] as soon as possible. Patient has been prescribed pain medications and antiemetics. ED return precautions were discussed with patient. Patient verbalized understanding. <Orion Moraes, - Last Filed: 06/28/22 17:53> Lab Data Labs: Lab Results 06/28/22 06/28/22 06/28/22 Range/Units 14:40 14:40 14:40 WBC 10.5 (4.5-11.0) X10^3/uL RBC 4.44 L (4.5-5.9) X10^6/uL Hgb 14.0 (13.5-17.5) g/dL Hct 40.3 L (41-53) % MCV 90.6 (80-100) fL MCH 31.5 (26-34) PG MCHC 34.8 (30-36) % RDW 13.3 (11.6-14.8) % Plt Count 218 (150-400) X10^3/uL Neut % (Auto) 82.5 H (50-75) % Lymph % (Auto) 10.5 L (25-40) % [place] % (Auto) 5.3 (3-14) % Eos % (Auto) 1.2 L (2-4) % Baso % (Auto) 0.5 (0-2) % Neut # (Auto) 8700 H (5848-6963) /uL Lymph # (Auto) 1100 (5917-3230) /uL [place] # (Auto) 600 (0-900) /uL Eos # (Auto) 100 (0-450) /uL Baso # (Auto) 100 (0-100) /uL Sodium 139 (137-145) mmol/L Potassium 4.3 (3.4-5.1) mmol/L Chloride 104 (98-107) mmol/L Carbon Dioxide 27 (22-32) mmol/L BUN 11 (9-20) mg/dL Creatinine 0.79 (0.66-1.25) mg/dL Estimated GFR > 60 (>60) mL/min BUN/Creatinine Ratio 13.9 (6-22) Glucose 101 H (70-100) mg/dL Lactate 1.4 (0.7-2.1) mmol/L Calcium 8.8 (8.4-10.2) mg/dL Total Bilirubin 0.5 (0.2-1.3) mg/dL AST 25 (17-59) IU/L ALT 17 (<50) IU/L Alkaline Phosphatase 72 (38-126) U/L Total Protein 7.2 (6.3-8.2) g/dL Albumin 4.3 (3.5-5.0) g/dL Globulin 2.9 (1.7-4.1) g/dL Albumin/Globulin Ratio 1.5 (1.0-2.8) Lipase 41 (23-300) U/L Urine Color Urine Appearance Urine pH (4.5-8.0) Ur Specific [place] (1.000-1.035) Urine Protein (Negative) Urine Glucose (UA) (Negative) g/dL Urine Ketones (NEGATIVE) Urine Occult Blood (Negative) Urine Nitrate (Negative) Urine Bilirubin (NEGATIVE) Urine Urobilinogen (0.2) E.U./dL Ur Leukocyte Esterase (NEGATIVE) 06/28/22 Range/Units 16:51 WBC (4.5-11.0) X10^3/uL RBC (4.5-5.9) X10^6/uL Hgb (13.5-17.5) g/dL Hct (41-53) % MCV (80-100) fL MCH (26-34) PG MCHC (30-36) % RDW (11.6-14.8) % Plt Count (150-400) X10^3/uL Neut % (Auto) (50-75) % Lymph % (Auto) (25-40) % [place] % (Auto) (3-14) % Eos % (Auto) (2-4) % Baso % (Auto) (0-2) % Neut # (Auto) (0375-2383) /uL Lymph # (Auto) (1505-2398) /uL [place] # (Auto) (0-900) /uL Eos # (Auto) (0-450) /uL Baso # (Auto) (0-100) /uL Sodium (137-145) mmol/L Potassium (3.4-5.1) mmol/L Chloride (98-107) mmol/L Carbon Dioxide (22-32) mmol/L BUN (9-20) mg/dL Creatinine (0.66-1.25) mg/dL Estimated GFR (>60) mL/min BUN/Creatinine Ratio (6-22) Glucose (70-100) mg/dL Lactate (0.7-2.1) mmol/L Calcium (8.4-10.2) mg/dL Total Bilirubin (0.2-1.3) mg/dL AST (17-59) IU/L ALT (<50) IU/L Alkaline Phosphatase (38-126) U/L Total Protein (6.3-8.2) g/dL Albumin (3.5-5.0) g/dL Globulin (1.7-4.1) g/dL Albumin/Globulin Ratio (1.0-2.8) Lipase (23-300) U/L Urine Color Yellow Urine Appearance Sl cloudy Urine pH 8.5 H (4.5-8.0) Ur Specific [place] 1.010 (1.000-1.035) Urine Protein 1+ H (Negative) Urine Glucose (UA) Negative (Negative) g/dL Urine Ketones Negative (NEGATIVE) Urine Occult Blood 3+ H (Negative) Urine Nitrate Negative (Negative) Urine Bilirubin Negative (NEGATIVE) Urine Urobilinogen 0.2 (0.2) E.U./dL Ur Leukocyte Esterase Negative (NEGATIVE) Urine Dip Bedside Urine Glucose Negative Bedside Urine Bilirubin - Negative Bedside Urine Ketone - Negative Urine Specific [place] 1.000 Bedside Urine Occult Blood +++ Bedside Urine pH 8.5 Bedside Urine Protein +/- 15 Bedside Urine Urobilinogen 0.2 Bedside Urine Nitrite - Negative Point of care testing: Urine Dip Bedside Urine Glucose Negative Bedside Urine Bilirubin - Negative Bedside Urine Ketone - Negative Urine Specific [place] 1.000 Bedside Urine Occult Blood +++ Bedside Urine pH 8.5 Bedside Urine Protein +/- 15 Bedside Urine Urobilinogen 0.2 Bedside Urine Nitrite - Negative Discharge Plan Departure Patient Disposition: Home Clinical Impression: Left renal stone Instructions: DI for Kidney Stones Activity Restrictions/Additional Instructions: You were evaluated in the ED today for abdominal pain. Your labs and urine were normal. Your CT abdomen pelvis did show a large intermittently blocking stone that is likely causing your symptoms. Given the size of the stone, you will likely need intervention from Urology. Please call [facility] at [phone] as soon as possible for an appointment. You are being prescribed medications for pain and nausea. You are also being prescribed tamsulosin to ease stone passage. Please return to the ED if your symptoms worsen, your pain is worsening despite taking the pain medications, you are persistently vomiting, you experience fever, chills. Prescriptions: New tramadol 50 mg tablet 50 mg PO Q6H PRN (Reason: pain) 7 Days Qty: 30 0RF ondansetron 4 mg tablet,disintegrating 4 mg PO Q8H PRN (Reason: nausea and vomiting) Qty: 20 0RF tamsulosin 0.4 mg capsule 0.4 mg PO BEDTIME Qty: 20 0RF No Action oxycodone 5 mg tablet 5 mg PO Q6H PRN (Reason: pain) Qty: 20 0RF Referrals: Miscellaneous,Doctor, MD [Primary Care Provider] - Visit Report Forms: Patient Portal/API <Orion Moraes DO - Last Filed: 06/28/22 17:53> Cosign ED Attending Cosignature Attestation: Dr Moraes Co-Sign Statement: I was available for consultation during this patient's emergency department visit. This chart is signed by myself for administrative purposes only. I did not have direct contact with this patient during this visit. They were seen independently by the APC.
[2022-06-28 14:19] VITALS: BP 147/90; PULSE 81; RESP 20; TEMP 36.7; O2SAT 100; BMI 25.8
[2022-06-28] MEDS: KETOROLAC 30 MG/ML VIAL 15 MG IV (14:21)
--- NOTE | 2022-06-28 14:22 | DI.CT.S_ITS ---
PROCEDURE: CT ABDOMEN PELVIS W CON INDICATIONS: L abd pain;?nephrolithisis TECHNIQUE: After the administration of intravenous contrast, axial sections acquired from the lung bases to the pubic symphysis. Coronal and sagittal reformats were performed. For radiation dose reduction, the following was used: automated exposure control, adjustment of mA and/or kV according to patient size. COMPARISON: [facility], CT, CT ABDOMEN PELVIS W CON, 04/16/2022, 18:14. FINDINGS: Image quality: Excellent. Lung bases: Unremarkable. Heart: No significant findings. ABDOMEN: Liver: Unremarkable. Gallbladder: Gallbladder is within normal limits. Biliary ducts: Unremarkable. Pancreas: Unremarkable. Spleen: Unremarkable. Adrenal Glands: Unremarkable. Kidneys and Ureters: 1.3 x 0.9 cm stone in left renal pelvis unchanged from prior study and measures 1212 Hounsfield unit in density. Additional nonobstructing stone in midpole left kidney measures 4 mm is also seen and unchanged. There is mild prominence of left renal pelvis and mild left perinephric fat stranding. No hydroureter. No right-sided renal stone or hydronephrosis. Stomach and Bowel: There is no bowel obstruction. No gastric or small bowel wall thickening. Appendix is visualized and is normal in size and appearance. There is suggestion of wall thickening involving transverse colon, descending colon and sigmoid colon with mild narrowing of the lumen. No significant pericolonic fat stranding. No abscess collection. Peritoneum: No abnormal intraperitoneal fluid. No free air. Ventral Wall: No hernias. Abdominal Nodes: No retroperitoneal or mesenteric adenopathy by size criteria. Vessels: Aorta and inferior vena cava are normal in size. PELVIS: Pelvic Organs: Unremarkable. Bladder: Unremarkable. Pelvic Nodes: No enlarged lymph nodes. Miscellaneous: No hernias are seen. Bones: No suspicious bony lesions. No acute vertebral body compression fracture. Degenerative disc disease at L5-S1 level is seen. IMPRESSION: 1. 1.3 x 0.9 cm stone in left renal pelvis with mild left-sided hydronephrosis as described above suggestive of intermittently obstructing left renal stone. No hydroureter. No right-sided stone or hydronephrosis. 2. Normal appendix. No bowel obstruction. No gastric or small bowel wall thickening. 3. Suggestion of mild colitis involving transverse colon, descending colon and sigmoid colon. No abscess collection. No free fluid or free air. Dictated by: Evaristo Fritz M.D. on 06/28/2022 at 15:43 Approved by: Evaristo Fritz M.D. on 06/28/2022 at 15:47
[2022-06-28 15:00] LABS: Add Manual Diff / Slide Review NO; Basophils Absolute Auto 100 /uL (0-100); Basophils Percent Auto 0.5 % (0-2); Eosinophils Absolute Auto 100 /uL (0-450); Eosinophils Percent Auto 1.2 % (2-4); Hematocrit 40.3 % (41-53); Lymphocytes Absolute Auto 1100 /uL (1100-4500); Lymphocytes Percent Auto 10.5 % (25-40); Mean Corpuscular HGB Conc 34.8 % (30-36); Mean Corpuscular Hemoglobin 31.5 PG (26-34); Mean Corpuscular Volume 90.6 fL (80-100); Monocytes Absolute Auto 600 /uL (0-900); Monocytes Percent Auto 5.3 % (3-14); Neutrophils Absolute Auto 8700 /uL (1500-7000); Neutrophils Percent Auto 82.5 % (50-75); Platelet Count 218 X10^3/uL (150-400); Red Blood Cell Count 4.44 X10^6/uL (4.5-5.9); Red Cell Distribution Width 13.3 % (11.6-14.8); White Blood Cell Count 10.5 X10^3/uL (4.5-11.0)
[2022-06-28 15:12] LABS: Alanine Aminotransferase 17 IU/L (<50); Albumin 4.3 g/dL (3.5-5.0); Albumin Globulin Ratio 1.5 (1.0-2.8); Alkaline Phosphatase 72 U/L (38-126); Aspartate Aminotransferase 25 IU/L (17-59); BUN Creatinine Ratio 13.9 (6-22); Bilirubin Total 0.5 mg/dL (0.2-1.3); Blood Urea Nitrogen 11 mg/dL (9-20); Calcium 8.8 mg/dL (8.4-10.2); Carbon Dioxide 27 mmol/L (22-32); Chloride 104 mmol/L (98-107); Estimated Glomerular Filt Rate > 60 mL/min (>60); Globulin 2.9 g/dL (1.7-4.1); Glucose 101 mg/dL (70-100); HEMOLYSIS 17 (0-50); Lipase 41 U/L (23-300); Potassium 4.3 mmol/L (3.4-5.1); Sodium 139 mmol/L (137-145); Total Protein 7.2 g/dL (6.3-8.2)
[2022-06-28 15:14] LABS: Lactate (Lactic Acid) 1.4 mmol/L (0.7-2.1)
[2022-06-28 16:16] VITALS: BP 122/57; PULSE 79; O2SAT 97
[2022-06-28 17:00] LABS: Appearance Urine UA SL CLOUDY; Bilirubin Urine UA NEGATIVE (NEGATIVE); Color Urine UA YELLOW; Glucose Urine UA NEGATIVE (Negative); Ketones Urine UA NEGATIVE (NEGATIVE); Leukocyte Esterase Urine UA NEGATIVE (NEGATIVE); Nitrite Urine UA NEGATIVE (Negative); Occult Blood Urine UA 3+ (Negative); Protein Urine UA 1+ (Negative); Urobilinogen Urine UA 0.2 E.U./dL (0.2); pH Urine UA 8.5 (4.5-8.0)
[2022-06-28 17:50] VITALS: BP 107/55; PULSE 80; TEMP 36.6; O2SAT 96
[2022-06-28 18:45] LABS: Bacteria Urine None Seen; Culture Indicated Urine Cult Not Indicated; RBC Urine 10-30/HPF (0-5/HPF); Squamous Epithelial Cell Urine None Seen (0-5/HPF); WBC Urine 1-5/HPF (0-5/HPF)
== END 2022-06-28 17:52 | disposition home or self-care (01) ==
PROVIDERS: Emergency Provider Student in an Organized Health Care Education/Training Program
DX: N20.0 Calculus of kidney (principal); R11.2 Nausea with vomiting, unspecified
CPT/HCPCS: 74177; 80053; 81001; 81003; 83605; 83690; 85025; 96374; 99283; 99284; J1885

== ENCOUNTER 2022-07-30 17:12 | Emergency (ER) | payer OTHER, MEDICAID, SELFPAY ==
[2022-07-30 17:28] VITALS: BP 165/92; PULSE 88; RESP 22; TEMP 35.8; O2SAT 99; BMI 26.6
[2022-07-30] MEDS: ONDANSETRON 4 MG/2 ML INJ IV (17:29)
[2022-07-30] MEDS: KETOROLAC 30 MG/ML VIAL 15 MG IV (17:29)
[2022-07-30] MEDS: HYDROMORPHONE 0.5 MG INJ IV (17:29)
[2022-07-30] MEDS: LORazepam 2 MG/ML INJ 0.5 MG IV (17:29)
--- NOTE | 2022-07-30 17:43 | DI.US.S_ITS ---
PROCEDURE: US RENAL COMPLETE INDICATIONS: FLANK PAIN. HISTORY OF STONES. TECHNIQUE: Real-time scanning was performed of the kidneys and bladder, with image documentation. COMPARISON: [facility], CT, CT ABDOMEN PELVIS W CON, 06/28/2022, 15:18. FINDINGS: Kidneys: Kidneys are normal in size. Right kidney measures 10.5 cm long; left kidney measures 9.7 cm long. Right renal cortical thickness is 1.1 cm; left renal cortical thickness is 1.5 cm. Renal cortical echotexture is normal. No right-sided hydronephrosis or nephrolithiasis. There is a prominent left renal pelvis stone measuring approximately 1.6 x 1.3 cm also seen by prior CT scanning 06/28/22. Also at the left mid kidney and lower 3rd collecting system on the left several echogenic foci are present consistent with calculi seen in those areas on CT scanning 1 month ago. No suspicious solid mass lesions. Bladder: Pre-void bladder volume is 71 mL. Post-void residual is 29 mL. Pre-void images demonstrate no intraluminal masses or stones. On pre-void images, right but not the left ureteral jets are noted with color Doppler interrogation. (Of note, ureteral jets may not be detectable in up to 25% of cases due to insufficient differences in specific gravity between ureteral and bladder urine). Miscellaneous: No free pelvic fluid. IMPRESSION: Renal calculi on the left are seen at the kidney level, similar in size and position to those identified by CT scanning 1 month ago. Definite new hydronephrosis on the left is not seen but this does not exclude migration of a calculus into the left ureter. Depending on the clinical status follow-up by CT scanning with contrast may become necessary electively. Dictated by: Jefry Hunt M.D. on 07/30/2022 at 20:46 Approved by: Jefry Hunt M.D. on 07/30/2022 at 20:51
--- NOTE | 2022-07-30 17:43 | ED.ABDPAIN ---
HPI - Abdominal Pain General Chief Complaint: Abdominal Pain Stated Complaint: abdominal pain Time Seen by Provider: 07/30/22 17:38 Source: patient Mode of arrival: EMS History of Present Illness HPI narrative: 32-year-old male smoker with known left-sided kidney stones and an appointment scheduled for a few days from now presents by EMS with a chief complaint of severe left side flank pain that is reminiscent of his kidney stone pain in the past. He states the pain is severe, sharp and stabbing and on his left flank. He denies any obvious provocation or palliation. He is nauseated but denies any vomiting. He denies runny nose, sore throat or cough. He has no chest pain, shortness of breath nor fever or chills. He denies any dysuria, frequency or urgency. Related Data Previous Rx's Medication Instructions Recorded oxycodone 5 mg tablet 5 mg PO Q6H PRN pain #20 tabs 04/16/22 ondansetron 4 mg disintegrating 4 mg PO Q8H PRN nausea and 06/28/22 tablet vomiting #20 tabs tamsulosin 0.4 mg capsule 0.4 mg PO BEDTIME #20 caps 06/28/22 ondansetron 4 mg disintegrating 4 mg PO TID-QID PRN nausea and 07/30/22 tablet vomiting #10 tabs oxycodone 5 mg tablet 5 mg PO Q4-6H PRN pain #20 tabs 07/30/22 Allergies Allergy/AdvReac Type Severity Reaction Status Date / Time No Known Drug Allergies Allergy Verified 07/30/22 17:33 Review of Systems Review of Systems Narrative: GENERAL: Denies chills, fatigue, malaise, fever, sweats. HEENT: Denies sinus pain, ear pain, sore throat, difficulty swallowing, dizziness. RESPIRATORY: Denies dyspnea, cough, wheezing, hemoptysis, sputum. CARDIOVASCULAR: Denies chest pain, palpitations, orthopnea, edema, GASTROINTESTINAL: See HPI : See HPI MUSCULOSKELETAL: denies weakness, joint pain, or bony pain SKIN: Denies rash, skin lesions, or other NEUROLOGIC: Denies weakness, headache, numbness, change in speech, confusion, seizures, incoordination. PSYCHIATRIC: No concerning psychosocial issues. 12 point review of systems is negative except for those stated above Patient History Medical History Left renal stone Social History Smoking Status: Current every day smoker Smoking Status: Current every day smoker alcohol intake frequency: 3 or more drinks per day Substance Use Type: marijuana Exam Narrative Exam Narrative: GENERAL: 32 [] year old patient appears stated age. Well-developed patient, in moderate distress, obviously uncomfortable. HEAD: Atraumatic. Normocephalic. EYES: Pupils equal round and reactive. Extraocular motions intact. No scleral icterus. No injection or drainage. ENT: Nose without bleeding, purulent drainage. Throat without erythema, tonsillar hypertrophy or exudate. Airway patent. NECK: Trachea midline. Non tender CARDIOVASCULAR: Regular rate and rhythm without murmurs, gallops, or rubs. RESPIRATORY: Clear to auscultation. Breath sounds equal bilaterally. No wheezes, rales, or rhonchi. GASTROINTESTINAL: Abdomen soft, non-tender, nondistended. EXTREMITIES: No edema or joint tenderness. BACK: Nontender without deformity or crepitance. No flank tenderness. NEURO: AOx3. SKIN: No rash or erythema of visible areas Initial Vital Signs Initial Vital Signs: Vital Signs Temperature 96.5 F L 07/30/22 17:28 Pulse Rate 88 07/30/22 17:28 Respiratory Rate 22 07/30/22 17:28 Blood Pressure 165/92 H 07/30/22 17:28 Pulse Oximetry 99 07/30/22 17:28 Oxygen Delivery Method 07/30/22 17:28 Course Course Course Narrative: Patient had significant improvement in his symptoms after above-stated therapies Orders Ordered: Discontinued Medications Hydromorphone HCl (Hydromorphone 0.5 Mg Inj) 0.5 mg IV NOW ONE Stop: 07/30/22 17:23 Last Admin: 07/30/22 17:29 Dose: 0.5 mg Documented By: ANDREW Lidocaine HCl 115 mg/ Sodium (Chloride) 55.75 mls @ 334.5 mls/hr IV NOW ONE Stop: 07/30/22 20:09 Last Infusion: 07/30/22 20:59 Dose: 0 mls/hr Documented By: Admin: 07/30/22 20:49 Dose: 334.5 mls/hr Documented By: RAFFI Sodium Chloride (Normal Saline 0.9%) 1,000 mls @ 1,000 mls/hr IV BOLUS ONE Stop: 07/30/22 22:33 Last Infusion: 07/30/22 22:38 Dose: 0 mls/hr Documented By: Admin: 07/30/22 21:40 Dose: 1,000 mls/hr Documented By: RAFFI Ketorolac Tromethamine (Ketorolac 30 Mg/Ml Vial) 15 mg IV NOW ONE Stop: 07/30/22 17:23 Last Admin: 07/30/22 17:29 Dose: 15 mg Documented By: ANDREW Ketorolac Tromethamine (Ketorolac 30 Mg/Ml Vial) 15 mg IV NOW ONE Stop: 07/30/22 17:44 Last Admin: 07/30/22 18:11 Dose: Not Given Documented By: ANDREW Lidocaine HCl (Lidocaine 2% Abboject 100 Mg/5 Ml Syringe) 116 mg 1.5 mg/kg (116 mg) IV NOW ONE Stop: 07/30/22 17:45 Last Admin: 07/30/22 19:10 Dose: Not Given Documented By: ANDREW Lorazepam (Lorazepam 2 Mg/Ml Inj) 0.5 mg IV NOW ONE Stop: 07/30/22 17:23 Last Admin: 07/30/22 17:29 Dose: 0.5 mg Documented By: ANDREW Ondansetron HCl (Ondansetron 4 Mg/2 Ml Inj) 4 mg IV NOW ONE Stop: 07/30/22 17:23 Last Admin: 07/30/22 17:29 Dose: 4 mg Documented By: ANDREW Ondansetron HCl (Ondansetron 4 Mg/2 Ml Inj) 4 mg IV NOW ONE Stop: 07/30/22 17:44 Last Admin: 07/30/22 18:11 Dose: Not Given Documented By: ANDREW Oxycodone/Acetaminophen (Oxycodone/Apap 5/325 Prepack) 1 bottle MISC SEEINSTR ONE Stop: 07/30/22 21:35 Last Admin: 07/30/22 21:45 Dose: 1 bottle Documented By: BROOKE Vital Signs Vital signs: Vital Signs - 8 hr 07/30/22 22:39 Temperature 97.7 F Pulse Rate 88 Respiratory Rate 16 Blood Pressure 128/74 Pulse Oximetry 98 Oxygen Delivery Method Room Air MDM - Abdominal Pain Lab Data Result diagrams: 07/30/22 17:50 07/30/22 17:50 Labs: Lab Results 07/30/22 07/30/22 07/30/22 Range/Units 17:30 17:50 17:50 WBC 13.4 H (4.5-11.0) X10^3/uL RBC 4.69 (4.5-5.9) X10^6/uL Hgb 14.8 (13.5-17.5) g/dL Hct 42.2 (41-53) % MCV 90.0 (80-100) fL MCH 31.5 (26-34) PG MCHC 35.1 (30-36) % RDW 12.9 (11.6-14.8) % Plt Count 207 (150-400) X10^3/uL Neut % (Auto) 85.7 H (50-75) % Lymph % (Auto) 7.2 L (25-40) % [place] % (Auto) 4.1 (3-14) % Eos % (Auto) 1.0 L (2-4) % Baso % (Auto) 2.0 (0-2) % Neut # (Auto) 76445 H (3243-9815) /uL Lymph # (Auto) 1000 L (9190-2869) /uL [place] # (Auto) 500 (0-900) /uL Eos # (Auto) 100 (0-450) /uL Baso # (Auto) 300 H (0-100) /uL Sodium 140 (137-145) mmol/L Potassium 3.5 (3.4-5.1) mmol/L Chloride 106 (98-107) mmol/L Carbon Dioxide 23 (22-32) mmol/L BUN 11 (9-20) mg/dL Creatinine 0.79 (0.66-1.25) mg/dL Estimated GFR > 60 (>60) mL/min BUN/Creatinine Ratio 13.9 (6-22) Glucose 103 H (70-100) mg/dL Lactate (0.7-2.1) mmol/L Calcium 8.9 (8.4-10.2) mg/dL Total Bilirubin 0.8 (0.2-1.3) mg/dL AST 22 (17-59) IU/L ALT 19 (<50) IU/L Alkaline Phosphatase 93 (38-126) U/L Total Protein 7.8 (6.3-8.2) g/dL Albumin 4.5 (3.5-5.0) g/dL Globulin 3.3 (1.7-4.1) g/dL Albumin/Globulin Ratio 1.4 (1.0-2.8) Lipase 130 (23-300) U/L SARS-CoV-2 (PCR) Negative (Negative) 07/30/22 Range/Units 17:50 WBC (4.5-11.0) X10^3/uL RBC (4.5-5.9) X10^6/uL Hgb (13.5-17.5) g/dL Hct (41-53) % MCV (80-100) fL MCH (26-34) PG MCHC (30-36) % RDW (11.6-14.8) % Plt Count (150-400) X10^3/uL Neut % (Auto) (50-75) % Lymph % (Auto) (25-40) % [place] % (Auto) (3-14) % Eos % (Auto) (2-4) % Baso % (Auto) (0-2) % Neut # (Auto) (5852-7485) /uL Lymph # (Auto) (8774-1678) /uL [place] # (Auto) (0-900) /uL Eos # (Auto) (0-450) /uL Baso # (Auto) (0-100) /uL Sodium (137-145) mmol/L Potassium (3.4-5.1) mmol/L Chloride (98-107) mmol/L Carbon Dioxide (22-32) mmol/L BUN (9-20) mg/dL Creatinine (0.66-1.25) mg/dL Estimated GFR (>60) mL/min BUN/Creatinine Ratio (6-22) Glucose (70-100) mg/dL Lactate 1.9 (0.7-2.1) mmol/L Calcium (8.4-10.2) mg/dL Total Bilirubin (0.2-1.3) mg/dL AST (17-59) IU/L ALT (<50) IU/L Alkaline Phosphatase (38-126) U/L Total Protein (6.3-8.2) g/dL Albumin (3.5-5.0) g/dL Globulin (1.7-4.1) g/dL Albumin/Globulin Ratio (1.0-2.8) Lipase (23-300) U/L SARS-CoV-2 (PCR) (Negative) Imaging Data Renal US: Radiologist's Impression: [address] [address] Ultrasound Report Signed Patient: David Mosher MR#: [id number] : 1990 Acct:[id number] Age/Sex: 32 / M Date of Service: 07/30/22 Loc: ED Accession Number: [id number] ?? Procedure: US renal complete Ordering Provider: Hector Boggs D.O. PROCEDURE:? US RENAL COMPLETE ? INDICATIONS:? FLANK PAIN. HISTORY OF STONES. ? TECHNIQUE:? Real-time scanning was performed of the kidneys and bladder, with image documentation.? ? COMPARISON:? [facility], CT, CT ABDOMEN PELVIS W CON, 06/28/2022, 15:18. ? FINDINGS:? ? Kidneys:? Kidneys are normal in size.? Right kidney measures 10.5 cm long; left kidney measures 9.7 cm long.? Right renal cortical thickness is 1.1 cm; left renal cortical thickness is 1.5 cm.? Renal cortical echotexture is normal.? No right-sided hydronephrosis or nephrolithiasis.? There is a prominent left renal pelvis stone measuring approximately 1.6 x 1.3 cm also seen by prior CT scanning 06/28/22.? Also at the left mid kidney and lower 3rd collecting system on the left several echogenic foci are present consistent with calculi seen in those areas on CT scanning 1 month ago.? No suspicious solid mass lesions.? ? Bladder:? Pre-void bladder volume is 71 mL.? Post-void residual is 29 mL.? Pre-void images demonstrate no intraluminal masses or stones.? On pre-void images, right but not the left ureteral jets are noted with color Doppler interrogation.? (Of note, ureteral jets may not be detectable in up to 25% of cases due to insufficient differences in specific gravity between ureteral and bladder urine).? ? Miscellaneous:? No free pelvic fluid.? ? IMPRESSION:? Renal calculi on the left are seen at the kidney level, similar in size and position to those identified by CT scanning 1 month ago.? Definite new hydronephrosis on the left is not seen but this does not exclude migration of a calculus into the left ureter.? Depending on the clinical status follow-up by CT scanning with contrast may become necessary electively. ? ? Dictated by: Jefry Hunt M.D. on 07/30/2022 at 20:46 ? ? Approved by: Jefry Hunt M.D. on 07/30/2022 at 20:51 ? MDM Narrative Medical decision making narrative: [32-year-old male with known kidney stones presents with severe left flank pain] Multiple etiologies for patient's symptoms considered including, but not limited to: Kidney stone, pyelonephritis, bowel obstruction versus other Prior Charts reviewed: Including prior visits for kidney stones Labs reviewed and interpreted by myself: No evidence of significant infection or renal failure Imaging reviewed: Renal ultrasound redemonstrates findings consistent with known kidney stones Patient shows no sign of sepsis, pain is well controlled, he is tolerating orals and labs suggest against any kidney injury Patient's symptoms improved over duration of stay with above-stated therapies. Findings and discharge diagnosis discussed with patient/family followed by verbalization of understanding Return precautions discussed with patient/family whom verbalize understanding of diagnosis and plan Discharge Plan Departure Patient Disposition: Home Clinical Impression: Left renal stone Instructions: DI for Kidney Stones Activity Restrictions/Additional Instructions: *You have been diagnosed with [left-sided kidney stone without evidence of obstruction or infection] *What to do: *Please continue to take your regular medications as directed. [ x] New medication prescriptions sent to your pharmacy: [ [facility]] [ ] New medication written as a paper prescription [ ] No new medications given *Please follow up with your urologist on 08/03 as scheduled *Return to Emergency Department if you should have any new, worsening or concerning symptoms, such as [fever greater than 101 F, shaking chills, worsening pain, persistent vomiting or other bothersome symptoms] Prescriptions: New oxycodone 5 mg tablet 5 mg PO Q4-6H PRN (Reason: pain) Qty: 20 0RF ondansetron 4 mg tablet,disintegrating 4 mg PO TID-QID PRN (Reason: nausea and vomiting) Qty: 10 0RF No Action oxycodone 5 mg tablet 5 mg PO Q6H PRN (Reason: pain) Qty: 20 0RF ondansetron 4 mg tablet,disintegrating 4 mg PO Q8H PRN (Reason: nausea and vomiting) Qty: 20 0RF tamsulosin 0.4 mg capsule 0.4 mg PO BEDTIME Qty: 20 0RF Referrals: Miscellaneous,Doctor, MD [Primary Care Provider] - Stand Alone Forms: Patient Portal/API
[2022-07-30 18:00] LABS: COVID19 -Nasal RAPID Negative (Negative)
[2022-07-30 18:26] LABS: Lactate (Lactic Acid) 1.9 mmol/L (0.7-2.1)
[2022-07-30 18:27] LABS: Alanine Aminotransferase 19 IU/L (<50); Albumin 4.5 g/dL (3.5-5.0); Albumin Globulin Ratio 1.4 (1.0-2.8); Alkaline Phosphatase 93 U/L (38-126); Aspartate Aminotransferase 22 IU/L (17-59); BUN Creatinine Ratio 13.9 (6-22); Bilirubin Total 0.8 mg/dL (0.2-1.3); Blood Urea Nitrogen 11 mg/dL (9-20); Calcium 8.9 mg/dL (8.4-10.2); Carbon Dioxide 23 mmol/L (22-32); Chloride 106 mmol/L (98-107); Estimated Glomerular Filt Rate > 60 mL/min (>60); Globulin 3.3 g/dL (1.7-4.1); Glucose 103 mg/dL (70-100); HEMOLYSIS < 15 (0-50); Lipase 130 U/L (23-300); Potassium 3.5 mmol/L (3.4-5.1); Sodium 140 mmol/L (137-145); Total Protein 7.8 g/dL (6.3-8.2)
[2022-07-30 18:38] LABS: Add Manual Diff / Slide Review NO; Basophils Absolute Auto 300 /uL (0-100); Eosinophils Absolute Auto 100 /uL (0-450); Hematocrit 42.2 % (41-53); Hemoglobin 14.8 g/dL (13.5-17.5); Lymphocytes Absolute Auto 1000 /uL (1100-4500); Lymphocytes Percent Auto 7.2 % (25-40); Mean Corpuscular HGB Conc 35.1 % (30-36); Mean Corpuscular Hemoglobin 31.5 PG (26-34); Monocytes Absolute Auto 500 /uL (0-900); Monocytes Percent Auto 4.1 % (3-14); Neutrophils Absolute Auto 11500 /uL (1500-7000); Neutrophils Percent Auto 85.7 % (50-75); Platelet Count 207 X10^3/uL (150-400); Red Blood Cell Count 4.69 X10^6/uL (4.5-5.9); Red Cell Distribution Width 12.9 % (11.6-14.8); White Blood Cell Count 13.4 X10^3/uL (4.5-11.0)
[2022-07-30] MEDS: SODIUM CHLORIDE 0.9% IV (20:49)
[2022-07-30] MEDS: LIDOCAINE IV (20:49)
[2022-07-30] MEDS: SODIUM CHLORIDE 0.9% 1,000 ML 1000 ML IV (21:40)
[2022-07-30] MEDS: OXYCODONE/APAP 5/325 PREPACK 1 BOTTLE MISC (21:45)
[2022-07-30 22:39] VITALS: BP 128/74; PULSE 88; RESP 16; TEMP 36.5; O2SAT 98
== END 2022-07-30 22:40 | disposition home or self-care (01) ==
PROVIDERS: Emergency Provider Emergency Medicine
DX: N20.0 Calculus of kidney (principal); Z20.822 Contact with and (suspected) exposure to COVID-19
CPT/HCPCS: 36415; 76770; 80053; 83605; 83690; 85025; 87635; 96374; 96375; 99284; C9803; J1170; J1885; J2060; J2405

== ENCOUNTER 2022-08-15 15:58 | Emergency (ER) | payer OTHER, MEDICAID, SELFPAY ==
[2022-08-15 16:00] VITALS: BP 140/85; PULSE 94; RESP 18; TEMP 37; O2SAT 99; BMI 25.8
--- NOTE | 2022-08-15 16:09 | PC.NURSE ---
Ariel reports to EMS a history of some potential lung cancer, has not been officially diagnosed.
[2022-08-15 16:26] LABS: Add Manual Diff / Slide Review NO; Basophils Absolute Auto 100 /uL (0-100); Basophils Percent Auto 0.7 % (0-2); Eosinophils Absolute Auto 200 /uL (0-450); Hematocrit 43.5 % (41-53); Hemoglobin 14.8 g/dL (13.5-17.5); Lymphocytes Absolute Auto 2500 /uL (1100-4500); Lymphocytes Percent Auto 20.7 % (25-40); Mean Corpuscular HGB Conc 34.1 % (30-36); Mean Corpuscular Hemoglobin 31.3 PG (26-34); Mean Corpuscular Volume 91.8 fL (80-100); Monocytes Absolute Auto 1100 /uL (0-900); Monocytes Percent Auto 8.9 % (3-14); Neutrophils Absolute Auto 8300 /uL (1500-7000); Neutrophils Percent Auto 67.7 % (50-75); Platelet Count 307 X10^3/uL (150-400); Red Blood Cell Count 4.74 X10^6/uL (4.5-5.9); Red Cell Distribution Width 13.3 % (11.6-14.8); White Blood Cell Count 12.3 X10^3/uL (4.5-11.0)
[2022-08-15 16:32] LABS: Alanine Aminotransferase 19 IU/L (<50); Albumin 4.2 g/dL (3.5-5.0); Albumin Globulin Ratio 1.2 (1.0-2.8); Alkaline Phosphatase 92 U/L (38-126); Aspartate Aminotransferase 25 IU/L (17-59); BUN Creatinine Ratio 11.5 (6-22); Bilirubin Total 0.6 mg/dL (0.2-1.3); Blood Urea Nitrogen 9 mg/dL (9-20); Calcium 8.6 mg/dL (8.4-10.2); Carbon Dioxide 25 mmol/L (22-32); Chloride 102 mmol/L (98-107); Estimated Glomerular Filt Rate > 60 mL/min (>60); Globulin 3.5 g/dL (1.7-4.1); Glucose 147 mg/dL (70-100); HEMOLYSIS < 15 (0-50); Lipase 508 U/L (23-300); Potassium 3.6 mmol/L (3.4-5.1); Sodium 140 mmol/L (137-145); Total Protein 7.7 g/dL (6.3-8.2)
--- NOTE | 2022-08-15 18:09 | DI.CT.S_ITS ---
PROCEDURE: CT ABDOMEN PELVIS W CON INDICATIONS: LLQ pain TECHNIQUE: After the administration of intravenous contrast, axial sections acquired from the lung bases to the pubic symphysis. Coronal and sagittal reformats were performed. For radiation dose reduction, the following was used: automated exposure control, adjustment of mA and/or kV according to patient size. COMPARISON: [facility], CT, CT ABDOMEN PELVIS W CON, 06/28/2022, 15:18. FINDINGS: Image quality: Excellent. Lung bases: Unremarkable. Heart: No significant findings. ABDOMEN: Liver: Unremarkable. Gallbladder: Demonstrates a high density focus within its lumen without evidence of wall thickening. Biliary ducts: Unremarkable. Pancreas: Unremarkable. Spleen: Unremarkable. Adrenal Glands: Unremarkable. Kidneys and Ureters: The left renal pelvic calculus measuring 12 mm is unchanged. 4 mm calculus within the left interpolar kidney laterally unchanged. 4 mm inferior pole left renal calculus unchanged. Mild left hydronephrosis unchanged. No right hydronephrosis. Stomach and Bowel: Stomach, small bowel loops, and colon are unremarkable. Normal appendix. Peritoneum: No abnormal intraperitoneal fluid. No free air. Ventral Wall: No hernias. Abdominal Nodes: No retroperitoneal or mesenteric adenopathy by size criteria. Vessels: Aorta and inferior vena cava are normal in size. PELVIS: Pelvic Organs: Unremarkable. Bladder: Unremarkable. Pelvic Nodes: No enlarged lymph nodes. Miscellaneous: No hernias are seen. Bones: Unremarkable. IMPRESSION: 1. No change in left nephrolithiasis associated with mild left hydronephrosis as described above. 2. Normal appendix. 3. Cholelithiasis. No evidence of cholecystitis. Dictated by: Madisyn Hampton M.D. on 08/15/2022 at 18:45 Approved by: Madisyn Hampton M.D. on 08/15/2022 at 18:47
--- NOTE | 2022-08-15 18:11 | ED.ABDPAIN ---
HPI - Abdominal Pain <Red Garcia PA-C - Last Filed: 08/15/22 19:51> General Chief Complaint: Abdominal Pain Stated Complaint: Abd pain Time Seen by Provider: 08/15/22 16:05 Source: EMS Mode of arrival: EMS History of Present Illness HPI narrative: 32-year-old male with past medical history nephrolithiasis presents to the ED with 1 day of left-sided lower abdominal pain. Patient has been seen in the ED in June 2022 and July 2022 for the same complaint, the etiology of which is a intermittently obstructing 1.3 x 0.9 cm stone in the left renal pelvis. Patient states that he has had no fever, but felt chills. Patient endorses nausea, vomiting. Patient notes that his pain is in the left lower quadrant, which is much lower than his prior episodes. Patient denies drug use. Patient endorses occasional alcohol use. Patient states that he has an appointment with [facility] tomorrow. Related Data Previous Rx's Medication Instructions Recorded oxycodone 5 mg tablet 5 mg PO Q6H PRN pain #20 tabs 04/16/22 ondansetron 4 mg disintegrating 4 mg PO Q8H PRN nausea and 06/28/22 tablet vomiting #20 tabs tamsulosin 0.4 mg capsule 0.4 mg PO BEDTIME #20 caps 06/28/22 ondansetron 4 mg disintegrating 4 mg PO TID-QID PRN nausea and 07/30/22 tablet vomiting #10 tabs oxycodone 5 mg tablet 5 mg PO Q4-6H PRN pain #20 tabs 07/30/22 ondansetron 4 mg disintegrating 4 mg PO Q8H PRN nausea and 08/15/22 tablet vomiting #10 tabs tramadol 50 mg tablet 50 mg PO Q6H PRN pain #12 tabs 08/15/22 Allergies Allergy/AdvReac Type Severity Reaction Status Date / Time No Known Drug Allergies Allergy Verified 08/15/22 16:09 Review of Systems <Red Garcia PA-C - Last Filed: 08/15/22 19:51> Review of Systems ROS Unobtainable: All systems reviewed & are unremarkable except as noted in HPI and below Constitutional Constitutional: Reports chills, Denies fatigue, Denies fever(s), Denies frequent falls, Denies lethargy and Denies weakness Eyes Eyes: Denies change in vision, Denies eye discharge, Denies irritation and Denies loss of vision ENT Ears, Nose, Mouth, and Throat: Denies change in voice, Denies dizziness, Denies neck pain, Denies sore throat and Denies throat swelling Cardiovascular Cardiovascular: Denies chest pain, Denies irregular heart rhythm, Denies lightheadedness, Denies palpitations, Denies dyspnea, Denies dyspnea on exertion and Denies orthopnea Respiratory Respiratory: Denies cough, Denies dyspnea, Denies dyspnea on exertion and Denies wheezing Gastrointestinal Gastrointestinal: Reports abdominal pain, Denies change in bowel habits, Denies diarrhea, Reports nausea and Reports vomiting Genitourinary Genitourinary: Denies hematuria, Denies flank pain, Denies urinary incontinence and Denies urinary urgency Musculoskeletal Musculoskeletal: Denies back pain, Denies muscle weakness, Denies neck pain, Denies numbness and Denies tingling Integumentary/Breasts Skin/Breast: Denies pruritus, Denies erythema, Denies rash and Denies wounds Neurologic Neurologic: Denies behavioral changes, Denies confusion, Denies dizziness, Denies frequent falls, Denies loss of vision, Denies numbness, Denies tingling and Denies weakness Psychiatric Psychiatric: Denies anxiety, Denies behavioral changes, Denies confusion, Denies depression, Denies homicidal ideation and Denies suicidal ideation Endocrine Endocrine: Denies fatigue, Denies flushing and Denies palpitations Hematologic/Lymphatic Hematologic/Lymphatic: Denies easy bruising Allergic/Immunologic Allergic/Immunologic: Denies urticaria, Denies throat swelling and Denies wheezing Patient History <Red Garcia PA-C - Last Filed: 08/15/22 19:51> Medical History Left renal stone Social History Smoking Status: Current every day smoker Smoking Status: Current every day smoker alcohol intake frequency: 3 or more drinks per day Substance Use Type: marijuana and crack/cocaine Exam <Red Garcia PA-C - Last Filed: 08/15/22 19:51> Narrative Exam Narrative: Const General:?cooperative, healthy appearing and comfortable HENHI Head:?normal to inspection Ears:?hearing grossly normal bilaterally Nose:?external nose normal Face and sinus:?normal facial exam and sinuses nontender Mouth:?oral mucosae normal Throat:?posterior oropharynx normal Eyes General:?appearance normal, both eyes and all related structures Neck Neck:?normal visual inspection and no lymphadenopathy noted Resp Effort & Inspection:?normal respiratory effort Auscultation:?clear to auscultation bilaterally Cardio Rate:?regular rate Rhythm:?regular rhythm GI Abdomen is soft, nondistended. Abdomen is tender to palpation in the left lower quadrant. There is no CVA ttp. Neuro General:?patient alert, patient awake and patient oriented x3 Initial Vital Signs Initial Vital Signs: Vital Signs Temperature 98.6 F 08/15/22 16:00 Pulse Rate 94 H 08/15/22 16:00 Respiratory Rate 18 08/15/22 16:00 Blood Pressure 140/85 08/15/22 16:00 Pulse Oximetry 99 08/15/22 16:00 Oxygen Delivery Method 08/15/22 16:00 <Rosa Cortez DO - Last Filed: 08/18/22 03:11> Initial Vital Signs Initial Vital Signs: Vital Signs Temperature 98.6 F 08/15/22 16:00 Pulse Rate 94 H 08/15/22 16:00 Respiratory Rate 18 08/15/22 16:00 Blood Pressure 140/85 08/15/22 16:00 Pulse Oximetry 99 08/15/22 16:00 Oxygen Delivery Method 08/15/22 16:00 Course <Red Garcia PA-C - Last Filed: 08/15/22 19:51> Orders Ordered: Discontinued Medications Ketorolac Tromethamine (Ketorolac 30 Mg/Ml Vial) 15 mg IV NOW ONE Stop: 08/15/22 18:10 Last Admin: 08/15/22 18:17 Dose: 15 mg Documented By: LOYD Ondansetron HCl (Ondansetron 4 Mg Odt) 4 mg PO NOW PRN PRN Reason: Nausea And Vomiting Ondansetron HCl (Ondansetron 4 Mg/2 Ml Inj) 4 mg IV NOW PRN PRN Reason: Nausea And Vomiting Vital Signs Vital signs: Vital Signs - 8 hr 08/15/22 16:00 Temperature 98.6 F Pulse Rate 94 H Respiratory Rate 18 Blood Pressure 140/85 Pulse Oximetry 99 Oxygen Delivery Method Room Air <Rosa Cortez DO - Last Filed: 08/18/22 03:11> Orders Ordered: Discontinued Medications Ketorolac Tromethamine (Ketorolac 30 Mg/Ml Vial) 15 mg IV NOW ONE Stop: 08/15/22 18:10 Last Admin: 08/15/22 18:17 Dose: 15 mg Documented By: LOYD Ondansetron HCl (Ondansetron 4 Mg Odt) 4 mg PO NOW PRN PRN Reason: Nausea And Vomiting Ondansetron HCl (Ondansetron 4 Mg/2 Ml Inj) 4 mg IV NOW PRN PRN Reason: Nausea And Vomiting Vital Signs Vital signs: Vital Signs - 8 hr 08/15/22 16:00 Temperature 98.6 F Pulse Rate 94 H Respiratory Rate 18 Blood Pressure 140/85 Pulse Oximetry 99 Oxygen Delivery Method Room Air MDM - Abdominal Pain <Red Garcia PA-C - Last Filed: 08/15/22 19:51> Lab Data 08/15/22 16:00 08/15/22 16:00 Labs: Lab Results 08/15/22 08/15/22 08/15/22 Range/Units 16:00 16:00 18:45 WBC 12.3 H (4.5-11.0) X10^3/uL RBC 4.74 (4.5-5.9) X10^6/uL Hgb 14.8 (13.5-17.5) g/dL Hct 43.5 (41-53) % MCV 91.8 (80-100) fL MCH 31.3 (26-34) PG MCHC 34.1 (30-36) % RDW 13.3 (11.6-14.8) % Plt Count 307 (150-400) X10^3/uL Neut % (Auto) 67.7 (50-75) % Lymph % (Auto) 20.7 L (25-40) % Greene % (Auto) 8.9 (3-14) % Eos % (Auto) 2.0 (2-4) % Baso % (Auto) 0.7 (0-2) % Neut # (Auto) 8300 H (8920-7622) /uL Lymph # (Auto) 2500 (2437-1483) /uL Greene # (Auto) 1100 H (0-900) /uL Eos # (Auto) 200 (0-450) /uL Baso # (Auto) 100 (0-100) /uL Sodium 140 (137-145) mmol/L Potassium 3.6 (3.4-5.1) mmol/L Chloride 102 (98-107) mmol/L Carbon Dioxide 25 (22-32) mmol/L BUN 9 (9-20) mg/dL Creatinine 0.78 (0.66-1.25) mg/dL Estimated GFR > 60 (>60) mL/min BUN/Creatinine Ratio 11.5 (6-22) Glucose 147 H (70-100) mg/dL Calcium 8.6 (8.4-10.2) mg/dL Total Bilirubin 0.6 (0.2-1.3) mg/dL AST 25 (17-59) IU/L ALT 19 (<50) IU/L Alkaline Phosphatase 92 (38-126) U/L Total Protein 7.7 (6.3-8.2) g/dL Albumin 4.2 (3.5-5.0) g/dL Globulin 3.5 (1.7-4.1) g/dL Albumin/Globulin Ratio 1.2 (1.0-2.8) Lipase 508 H (23-300) U/L Urine RBC 0-1/hpf D (0-5/HPF) Urine WBC 1-5/hpf (0-5/HPF) Ur Squamous Epith Cells None seen (0-5/HPF) Urine Bacteria None seen (None) Urine Mucus 1+ H (Negative) Ur Culture Indicated? Cult not indicated Point of care testing: Urine Dip Bedside Urine Glucose Negative Bedside Urine Bilirubin - Negative Bedside Urine Ketone - Negative Urine Specific Holstein 1.010 Bedside Urine Occult Blood +/- Bedside Urine pH 8.5 Bedside Urine Protein +/- 15 Bedside Urine Urobilinogen - Negative Bedside Urine Nitrite - Negative Bedside Urine Leukocytes - Negative Esterase MDM Narrative Medical decision making narrative: 32-year-old male with past medical history nephrolithiasis presents to the ED with 1 day of left-sided lower abdominal pain. Concern for nephrolithiasis versus UTI versus pyelonephritis versus diverticulitis versus other intra-abdominal pathology.? Will obtain labs, lactate, lipase, UA, CT abdomen pelvis.? Patient was given fentanyl, Zofran by EMS, patient was still writhing in pain in the ED. patient was given 15 of ketorolac IV with good pain relief. Will reassess. Lipase elevated to 508. All other labs within normal limits. UA negative for UTI. CT shows no change in left nephrolithiasis associated with mild left hydronephrosis. The left renal pelvic calculus measuring 12 mm is unchanged, which is likely contributing to patient's symptoms. Patient's symptoms well controlled with Zofran and Toradol. Patient has a urology appointment with [facility] for tomorrow, which she agrees to keep. Prescribed tramadol, Zofran for symptoms. ED return precautions were discussed with patient. Patient verbalized understanding. Medical records reviewed:??yes ? Disposition: see below, along with detailed discharge instructions that have been reviewed with patient as well as indications for ED re-evaluation and additional outpatient follow up <Rosa Cortez, - Last Filed: 08/18/22 03:11> Lab Data Labs: Lab Results 08/15/22 08/15/22 08/15/22 Range/Units 16:00 16:00 18:45 WBC 12.3 H (4.5-11.0) X10^3/uL RBC 4.74 (4.5-5.9) X10^6/uL Hgb 14.8 (13.5-17.5) g/dL Hct 43.5 (41-53) % MCV 91.8 (80-100) fL MCH 31.3 (26-34) PG MCHC 34.1 (30-36) % RDW 13.3 (11.6-14.8) % Plt Count 307 (150-400) X10^3/uL Neut % (Auto) 67.7 (50-75) % Lymph % (Auto) 20.7 L (25-40) % Greene % (Auto) 8.9 (3-14) % Eos % (Auto) 2.0 (2-4) % Baso % (Auto) 0.7 (0-2) % Neut # (Auto) 8300 H (4854-0798) /uL Lymph # (Auto) 2500 (2917-4479) /uL Greene # (Auto) 1100 H (0-900) /uL Eos # (Auto) 200 (0-450) /uL Baso # (Auto) 100 (0-100) /uL Sodium 140 (137-145) mmol/L Potassium 3.6 (3.4-5.1) mmol/L Chloride 102 (98-107) mmol/L Carbon Dioxide 25 (22-32) mmol/L BUN 9 (9-20) mg/dL Creatinine 0.78 (0.66-1.25) mg/dL Estimated GFR > 60 (>60) mL/min BUN/Creatinine Ratio 11.5 (6-22) Glucose 147 H (70-100) mg/dL Calcium 8.6 (8.4-10.2) mg/dL Total Bilirubin 0.6 (0.2-1.3) mg/dL AST 25 (17-59) IU/L ALT 19 (<50) IU/L Alkaline Phosphatase 92 (38-126) U/L Total Protein 7.7 (6.3-8.2) g/dL Albumin 4.2 (3.5-5.0) g/dL Globulin 3.5 (1.7-4.1) g/dL Albumin/Globulin Ratio 1.2 (1.0-2.8) Lipase 508 H (23-300) U/L Urine RBC 0-1/hpf D (0-5/HPF) Urine WBC 1-5/hpf (0-5/HPF) Ur Squamous Epith Cells None seen (0-5/HPF) Urine Bacteria None seen (None) Urine Mucus 1+ H (Negative) Ur Culture Indicated? Cult not indicated Point of care testing: Urine Dip Bedside Urine Glucose Negative Bedside Urine Bilirubin - Negative Bedside Urine Ketone - Negative Urine Specific Holstein 1.010 Bedside Urine Occult Blood +/- Bedside Urine pH 8.5 Bedside Urine Protein +/- 15 Bedside Urine Urobilinogen - Negative Bedside Urine Nitrite - Negative Bedside Urine Leukocytes - Negative Esterase Discharge Plan Departure Patient Disposition: Home Clinical Impression: Left renal stone Instructions: DI for Kidney Stones Activity Restrictions/Additional Instructions: You were evaluated in the ED today for left-sided abdominal pain. Your CT shows the same left-sided kidney stone that was seen on your last 2 CTs, under causing your symptoms. Your symptoms responded well to Zofran and pain medication. You will be discharged home with Zofran and tramadol. Please keep your urologist appointment that you have for tomorrow. Return to the ED if you are persistently vomiting, or your pain is uncontrolled. Prescriptions: New tramadol 50 mg tablet 50 mg PO Q6H PRN (Reason: pain) Qty: 12 0RF ondansetron 4 mg tablet,disintegrating 4 mg PO Q8H PRN (Reason: nausea and vomiting) Qty: 10 0RF No Action oxycodone 5 mg tablet 5 mg PO Q6H PRN (Reason: pain) Qty: 20 0RF oxycodone 5 mg tablet 5 mg PO Q4-6H PRN (Reason: pain) Qty: 20 0RF ondansetron 4 mg tablet,disintegrating 4 mg PO TID-QID PRN (Reason: nausea and vomiting) Qty: 10 0RF ondansetron 4 mg tablet,disintegrating 4 mg PO Q8H PRN (Reason: nausea and vomiting) Qty: 20 0RF tamsulosin 0.4 mg capsule 0.4 mg PO BEDTIME Qty: 20 0RF Referrals: Miscellaneous,Doctor, MD [Primary Care Provider] - Stand Alone Forms: Patient Portal/API <Rosa Cortez DO - Last Filed: 08/18/22 03:11> Cosign ED Attending Jeremy Attestation: I was immediately available in the department for consultation. Documentation has been reviewed.
[2022-08-15] MEDS: KETOROLAC 30 MG/ML VIAL 15 MG IV (18:17)
[2022-08-15 19:58] VITALS: BP 121/70; PULSE 70; RESP 16; O2SAT 99
[2022-08-15 20:02] LABS: RBC Urine 0-1/HPF (0-5/HPF); Squamous Epithelial Cell Urine None Seen (0-5/HPF); WBC Urine 1-5/HPF (0-5/HPF)
[2022-08-15 20:03] LABS: Bacteria Urine None Seen; Culture Indicated Urine Cult Not Indicated; Mucus Urine 1+ (Negative)
== END 2022-08-15 19:59 | disposition home or self-care (01) ==
PROVIDERS: Emergency Provider Student in an Organized Health Care Education/Training Program
DX: N20.0 Calculus of kidney (principal)
CPT/HCPCS: 36415; 74177; 80053; 81003; 81015; 83690; 85025; 87086; 96374; 99284; J1885; Q9967

== ENCOUNTER 2022-08-26 06:41 | Day surgery (SDC) | payer OTHER, MEDICAID, SELFPAY ==
[2022-08-25 11:55] VITALS: BMI 26.6
[2022-08-26] VITALS (9 sets, daily range): BP systolic 97–123; BP diastolic 60–91; PULSE 72–93; RESP 14–19; TEMP 36.2–36.7; O2SAT 96–100; BMI 26.6
[2022-08-26] MEDS: LACTATED RINGERS 1,000 ML 21 ML IV (07:00)
[2022-08-26] MEDS: LACTATED RINGERS 1,000 ML 42 ML IV (07:21)
--- NOTE | 2022-08-26 07:23 | PM.PREOP ---
Pre-operative Note COVID-19 Criteria for continued procedure: Expected advancement of disease process, Possibility delay results in more complex future surgery or treatment, Continuing or worsening of significant or severe pain, Deterioration of the patient's condition or overall health, Delay expected to result in less-positive ultimate med/surg outcome and Non-surgical alternatives not available or appropriate per current SOC Interval Note History & Physical reviewed/Exam performed by Physician: Yes Changes to H&P: No
[2022-08-26] MEDS: CEFAZOLIN 2 GM/100 ML PREMIX 100 ML IV (07:50)
--- NOTE | 2022-08-26 07:57 | SUR.OPER ---
Lithotomy on padded OR bed, head on pillow, arms secured on padded arm boards at <90 degrees abduction. Legs secured in padded yellow fins stirrups. Pt positioned per direction and supervision of Dr Guzman.
--- NOTE | 2022-08-26 08:25 | DI.RAD.S_ITS ---
PROCEDURE: XR ABDOMEN 1V COMPARISON: [facility], CT, CT ABDOMEN PELVIS W CON, 08/15/2022, 18:27. INDICATIONS: STENT PLACEMENT FINDINGS: A single fluoroscopic view of the left kidney demonstrates interval placement of a stent IMPRESSION: Interval placement of a left ureteral stent. Dictated by: John Aldana M.D. on 08/26/2022 at 9:13 Approved by: John Aldana M.D. on 08/26/2022 at 9:14
--- NOTE | 2022-08-26 08:29 | P.OP_ITS ---
Operative Date/Time/Diagnoses Date of procedure: 08/26/22 Time of procedure: 08:10 Pre-op diagnosis: 1. Left renal calculi. 2. Left renal colic. Post-op diagnosis: other (Same, also Urethral stricture.) Procedure & Clinicians Procedure: 1. Cystoscopy/dilation urethral stricture. 2. Cystoscopy/placement left ureteral stent (7 Romanian by 22-32 cm multi-length). Same procedure as scheduled: No (Incidental finding of urethral stricture at junction of bulbar/penile segme) Indications: 1. Left renal calculi. 2. Left renal colic. Surgeon: Joseph Guzman Click Yes if Unassisted: Yes Anesthesia Type: General Operative Notes Findings: 1. Urethra-proximally 15 Romanian circumferential stricture with evidence of a healed posterior false passage at the junction the bulbar and penile segment. 2. External sphincter-coapted with normal overlying urothelium. 3. Prostate 3 to 3.5 cm length with elevated median bar and nonobstructing lateral lobes. 4. Bladder-trace trabeculation. Normal ureteral orifices bilaterally. No evidence of stone, tumor, or diverticulum. Closure Type: not applicable Specimen(s): none sent Applied: other (Seven Romanian by 22-32 cm multi-length stent.) Estimated Blood Loss (mL): 0 Blood products transfused: none Procedure in detail: Patient was positioned supine was administered general anesthesia he was then repositioned semi-lithotomy lower abdomen, genitalia, and groin were then prepped and draped in sterile fashion. The 22 Romanian panendoscope was then passed the lower urinary tract with the findings as described above. When the urethral stricture was encountered the angulated and rounded beak of the cystoscope sheath was then carefully maneuvered insinuated into the of scribe stricture and the scope was then gently advanced forward. The urethral stricture was effectively dilated. The scope was then advanced more proximally with the findings as described above. Next, a 0.35 hybrid guidewire was advanced through the working channel of the panendoscope and then it vast into t he left ureteral orifice and advanced proximally under direct and fluoroscopic guidance. Over this a 7 Romanian by 22-32 cm multi-length stent was selected and advanced over the guidewire again, under direct and fluoroscopic guidance. Bladder contents were then drained. NO RETRIEVAL LINE WAS LEFT ATTACHED. The patient was then repositioned supine, awakened, transferred to [facility], and transported to recovery in stable condition. Complications: none Post-operative Condition: stable Disposition: PACU Plan for aftercare: Discharge home
--- NOTE | 2022-08-26 08:47 | SUR.PHASEII ---
Pt to Phase II. Report from JEFFREY Davies. Pt c/o discomfort left groin. States he feels he has a full bladder, but unable to void. Pt up to bathroom.
[2022-08-26] MEDS: OXYCODONE IR 5 MG TABLET PO ×2 (09:03→09:30)
--- NOTE | 2022-08-26 09:08 | SUR.PHASEII ---
Addendum entered by Bhavna French R.N. 08/26/22 09:31: Dr Guzman at pt bedside and aware of pain. Original Note: Pt states he voided small amount bloody drng. Bladder scanned for 0 ml. Oxycodone given for pain 01/30.
== END 2022-08-26 09:31 | disposition home or self-care (01) ==
PROVIDERS: PCP Nurse Practitioner Family; Referring Provider Specialist; Visit Provider Specialist
PROC: (CPT 52332; principal; 2022-08-26 07:45)
DX: N23 Unspecified renal colic (principal); N35.812 Other bulbous urethral stricture, male; G89.18 Other acute postprocedural pain; K31.9 Disease of stomach and duodenum, unspecified; Z96.0 Presence of urogenital implants
CPT/HCPCS: 52332; 36415; 51798; 74018; 76000; 80053; 81001; 83690; 85025; 87086; 96374; 99284; J0690; J1100; J1885; J2250; J2405; J2704; J3010

== ENCOUNTER 2022-08-26 16:02 | Emergency (ER) | payer OTHER, MEDICAID, SELFPAY ==
[2022-08-26 16:05] VITALS: BP 141/69; PULSE 81; RESP 18; TEMP 37; O2SAT 99; BMI 26.6
[2022-08-26 16:34] LABS: Add Manual Diff / Slide Review NO; Basophils Absolute Auto 0 /uL (0-100); Basophils Percent Auto 0.2 % (0-2); Eosinophils Absolute Auto 0 /uL (0-450); Hematocrit 42.3 % (41-53); Hemoglobin 14.5 g/dL (13.5-17.5); Lymphocytes Absolute Auto 300 /uL (1100-4500); Mean Corpuscular HGB Conc 34.4 % (30-36); Mean Corpuscular Hemoglobin 31.5 PG (26-34); Mean Corpuscular Volume 91.6 fL (80-100); Monocytes Absolute Auto 100 /uL (0-900); Monocytes Percent Auto 1.7 % (3-14); Neutrophils Absolute Auto 7400 /uL (1500-7000); Neutrophils Percent Auto 94.1 % (50-75); Platelet Count 234 X10^3/uL (150-400); Red Blood Cell Count 4.62 X10^6/uL (4.5-5.9); Red Cell Distribution Width 13.2 % (11.6-14.8); White Blood Cell Count 7.9 X10^3/uL (4.5-11.0)
[2022-08-26 16:42] LABS: Alanine Aminotransferase 19 IU/L (<50); Albumin 4.4 g/dL (3.5-5.0); Albumin Globulin Ratio 1.4 (1.0-2.8); Alkaline Phosphatase 69 U/L (38-126); Aspartate Aminotransferase 22 IU/L (17-59); BUN Creatinine Ratio 18.7 (6-22); Bilirubin Total 0.7 mg/dL (0.2-1.3); Blood Urea Nitrogen 17 mg/dL (9-20); Calcium 9.3 mg/dL (8.4-10.2); Carbon Dioxide 26 mmol/L (22-32); Chloride 100 mmol/L (98-107); Estimated Glomerular Filt Rate > 60 mL/min (>60); Globulin 3.1 g/dL (1.7-4.1); Glucose 145 mg/dL (70-100); HEMOLYSIS < 15 (0-50); Lipase 144 U/L (23-300); Potassium 4.5 mmol/L (3.4-5.1); Sodium 138 mmol/L (137-145); Total Protein 7.5 g/dL (6.3-8.2)
[2022-08-26 16:53] LABS: Appearance Urine UA CLOUDY; Bilirubin Urine UA NEGATIVE (NEGATIVE); Color Urine UA RED; Glucose Urine UA NEGATIVE (Negative); Ketones Urine UA NEGATIVE (NEGATIVE); Leukocyte Esterase Urine UA 1+ (NEGATIVE); Nitrite Urine UA NEGATIVE (Negative); Occult Blood Urine UA 3+ (Negative); Protein Urine UA 2+ (Negative); Specific Gravity Urine UA 1.025 (1.000-1.035); pH Urine UA 7.5 (4.5-8.0)
[2022-08-26 17:02] LABS: Bacteria Urine None Seen; Culture Indicated Urine Specimen Cultured; RBC Urine >100/HPF (0-5/HPF); Squamous Epithelial Cell Urine 1-5 /HPF (0-5/HPF); WBC Urine 1-5/HPF (0-5/HPF)
--- NOTE | 2022-08-26 18:10 | ED_ITS ---
HPI - General Adult General Chief complaint: Urogenital-Male Stated complaint: Surgery today, Cramps, Blood in urine Time Seen by Provider: 08/26/22 18:09 Source: patient Mode of arrival: Ambulatory History of Present Illness HPI narrative: 32-year-old gentleman with left kidney stone who underwent cystoscopy with dilation of urethral stricture and left ureteral stent placement this morning. Was discharged home around 1:00 p.m. took 1 of his oxycodone when he got home and this afternoon notice that he was having increasing cramping flank pain and hematuria. He isn't have any difficulty voiding but was worried about the hematuria. He contacted the Urology office and was instructed by nurses to come to the emergency department for further evaluation. Reports some hot flushes but no nausea, vomiting, coughing, palpitations, chest pain. No abdominal pain. Related Data Previous Rx's Medication Instructions Recorded tramadol 50 mg tablet 50 mg PO Q6H PRN pain #12 tabs 08/15/22 tamsulosin 0.4 mg capsule 0.4 mg PO BEDTIME #60 caps 08/24/22 oxycodone 5 mg tablet 5 mg PO Q4H PRN pain #10 tabs 08/26/22 Allergies Allergy/AdvReac Type Severity Reaction Status Date / Time No Known Drug Allergies Allergy Verified 08/26/22 06:53 Review of Systems Review of Systems Narrative: Remainder of complete review of systems is otherwise unremarkable except for that included in the HPI. Patient History Medical History Left renal stone Nephrolithiasis Renal colic on left side Social History marital status: unmarried,single number of children: 2 Smoking Status: Current every day smoker Smoking Status: Current every day smoker alcohol intake frequency: a few times a week Substance Use Type: marijuana Exam Initial Vital Signs Initial Vital Signs: Vital Signs Temperature 98.6 F 08/26/22 16:05 Pulse Rate 81 08/26/22 16:05 Respiratory Rate 18 08/26/22 16:05 Blood Pressure 141/69 H 08/26/22 16:05 Pulse Oximetry 99 08/26/22 16:05 Oxygen Delivery Method 08/26/22 16:05 General: Healthy appearing, in no acute distress. Able to give a complete and coherent history. Well-nourished well-developed Respiratory: Lungs are clear to auscultation, no wheezing no rales no rhonchi. Full and symmetrical air movement Cardiac: Regular rate and rhythm no murmurs no bruits Abdomen: Soft, nontender, good bowel tones, no flank pain to palpation Skin: Warm and dry, no rashes Neurologic: Grossly neurologically intact with no obvious asymmetries or abnormalities Extremities: No trauma, well perfused Psych: Cooperative, appropriate insight and affect Course Orders Ordered: ED Orders 08/26/22 16:16 EKG-12 Lead Stat 08/26/22 16:22 Complete Blood Count AUTO DIFF Stat Comprehensive Metabolic Panel Stat Lipase Stat 08/26/22 16:40 Urinalysis and Microscopic Stat Urine Culture Stat Ondansetron HCl (Ondansetron 4 Mg Odt) 4 mg PO NOW PRN PRN Reason: Nausea And Vomiting Ondansetron HCl (Ondansetron 4 Mg/2 Ml Inj) 4 mg IV NOW PRN PRN Reason: Nausea And Vomiting Vital Signs Vital signs: Vital Signs - 8 hr 08/26/22 16:05 Temperature 98.6 F Pulse Rate 81 Respiratory Rate 18 Blood Pressure 141/69 H Pulse Oximetry 99 Oxygen Delivery Method Room Air Medical Decision Making Lab Data 08/26/22 16:22 08/26/22 16:22 Labs: Lab Results 08/26/22 08/26/22 08/26/22 Range/Units 16:22 16:22 16:40 WBC 7.9 (4.5-11.0) X10^3/uL RBC 4.62 (4.5-5.9) X10^6/uL Hgb 14.5 (13.5-17.5) g/dL Hct 42.3 (41-53) % MCV 91.6 (80-100) fL MCH 31.5 (26-34) PG MCHC 34.4 (30-36) % RDW 13.2 (11.6-14.8) % Plt Count 234 (150-400) X10^3/uL Neut % (Auto) 94.1 H (50-75) % Lymph % (Auto) 4.0 L (25-40) % [place] % (Auto) 1.7 L (3-14) % Eos % (Auto) 0.0 L (2-4) % Baso % (Auto) 0.2 (0-2) % Neut # (Auto) 7400 H (3546-5402) /uL Lymph # (Auto) 300 L (3901-6334) /uL [place] # (Auto) 100 (0-900) /uL Eos # (Auto) 0 (0-450) /uL Baso # (Auto) 0 (0-100) /uL Sodium 138 (137-145) mmol/L Potassium 4.5 (3.4-5.1) mmol/L Chloride 100 (98-107) mmol/L Carbon Dioxide 26 (22-32) mmol/L BUN 17 (9-20) mg/dL Creatinine 0.91 (0.66-1.25) mg/dL Estimated GFR > 60 (>60) mL/min BUN/Creatinine Ratio 18.7 (6-22) Glucose 145 H (70-100) mg/dL Calcium 9.3 (8.4-10.2) mg/dL Total Bilirubin 0.7 (0.2-1.3) mg/dL AST 22 (17-59) IU/L ALT 19 (<50) IU/L Alkaline Phosphatase 69 (38-126) U/L Total Protein 7.5 (6.3-8.2) g/dL Albumin 4.4 (3.5-5.0) g/dL Globulin 3.1 (1.7-4.1) g/dL Albumin/Globulin Ratio 1.4 (1.0-2.8) Lipase 144 (23-300) U/L Urine Color Red Urine Appearance Cloudy Urine pH 7.5 (4.5-8.0) Ur Specific [place] 1.025 (1.000-1.035) Urine Protein 2+ H (Negative) Urine Glucose (UA) Negative (Negative) g/dL Urine Ketones Negative (NEGATIVE) Urine Occult Blood 3+ H (Negative) Urine Nitrate Negative (Negative) Urine Bilirubin Negative (NEGATIVE) Urine Urobilinogen 2.0 H (0.2) E.U./dL Ur Leukocyte Esterase 1+ H (NEGATIVE) Urine RBC >100/hpf H (0-5/HPF) Urine WBC 1-5/hpf (0-5/HPF) Ur Squamous Epith Cells 1-5 /hpf (0-5/HPF) Urine Bacteria None seen (None) Ur Culture Indicated? Specimen cultured MDM Narrative Medical decision making narrative: CC: Flank pain with hematuria postop. This is a new problem with potential significant life-threatening complication Complicating co-morbidities: Ureteral stent placed this morning Corroborating data: Data collected from: patient, Medical records reviewed: Surgical records from ureteral stent in urethral stricture procedure reviewed from this morning Differential considered: Postoperative pain and bleeding. Perforation of some portion of the renal collecting system or bladder, infection Exam documented above, pertinent findings include: Completely benign exam Lab Test results independently reviewed as above. Pertinent findings: CBC is unremarkable shows no evidence of leukocytosis or significant anemia Chemistries are reassuring with no evidence of significant dehydration or renal injury Not urine is consistent with postop from ureteral stent placement hours ago Treatments: Zofran, Toradol, fluid, single Percocet. Discussion: 32-year-old gentleman with left ureteral stone post stent placement and urethral stricture dilation today. Was concerned with some sharp stabbing flank pain and hematuria and instructed to come to the ER. No signs of acute abdomen, perforated viscus or any complications beyond anticipated postop discomfort. Postvoid residual was less than 25 cc. Urine has been cultured but I do not believe he has infection nor needs additional antibiotics. He has pain medication available at home as well as follow-up already scheduled with his urologist. He is safe for discharge home Disposition: see below, along with detailed discharge instructions that have been reviewed with patient as well as indications for ED re-evaluation and additional outpatient follow up Discharge Plan Departure Patient Disposition: Home Clinical Impression: Post-operative pain, Left renal stone, Ureteral stent present Hematuria Qualifiers: Hematuria type: gross Qualified Code(s): R31.0 - Gross hematuria Instructions: DI for Ureteral Stent Placement Activity Restrictions/Additional Instructions: Thank you for coming in this evening Fortunately there is no evidence of any complications from your surgical procedure. The pain as well as the hematuria are anticipated after stent placement. As long as you are still able to void it is safe to take medications to help with the pain. Using 400 mg of ibuprofen (2 xdxj-gmg-xhnimrf pills) and 1 Tylenol every 6 hours can be very helpful in controlling pain. For severe pain you can add 5 mg of oxycodone to that mix. If you find that you are unable to void that would be a reason to come to the emergency department. Additional reason would be fevers, chills, severe abdominal pain or new findings. Please keep your scheduled postoperative appointment with Dr. Christie Prescriptions: No Action oxycodone 5 mg tablet 5 mg PO Q4H PRN (Reason: pain) Qty: 10 0RF tramadol 50 mg tablet 50 mg PO Q6H PRN (Reason: pain) Qty: 12 0RF tamsulosin 0.4 mg capsule 0.4 mg PO BEDTIME Qty: 60 0RF Referrals: Brigid Rubalcava ARNP [Primary Care Provider] - Stand Alone Forms: Patient Portal/API
[2022-08-26] MEDS: KETOROLAC 30 MG/ML VIAL 15 MG IV (18:25)
[2022-08-26] MEDS: SODIUM CHLORIDE 0.9% 1,000 ML 1000 ML IV (18:26)
[2022-08-26] MEDS: OXYCODONE/ACETAMINOPHEN 5/325 TABLET 1 TAB PO (18:26)
[2022-08-26 18:52] VITALS: BP 114/67; PULSE 73; O2SAT 100
== END 2022-08-26 19:15 | disposition home or self-care (01) ==
PROVIDERS: Emergency Medicine; Emergency Provider Emergency Medicine; PCP Nurse Practitioner Family
DX: G89.18 Other acute postprocedural pain (principal); R31.9 Hematuria, unspecified; Z96.0 Presence of urogenital implants
CPT/HCPCS: 36415; 51798; 80053; 81001; 83690; 85025; 87086; 99284; J1885

== ENCOUNTER 2022-09-05 08:32 | Day surgery (SDC) | payer OTHER, MEDICAID, SELFPAY ==
[2022-09-05] VITALS (10 sets, daily range): BP systolic 99–134; BP diastolic 64–85; PULSE 74–90; RESP 12–22; TEMP 36.2–36.8; O2SAT 14–100
--- NOTE | 2022-09-05 | DI.RAD.S_ITS ---
PROCEDURE: XR ABDOMEN 1V INDICATIONS: CYSTO TECHNIQUE: Single intraoperative fluoroscopic spot film of the left upper quadrant was obtained COMPARISON: [facility], CR, XR ABDOMEN 1V, 08/26/2022, 9:03. FINDINGS: Single low resolution intraoperative fluoroscopic spot films shows pigtail drain with wire projecting over the expected location of the left renal pelvis IMPRESSION: Fluoroscopic guidance Approved by: Kenroy Gupta M.D. on 09/05/2022 at 16:09
--- NOTE | 2022-09-05 09:04 | PM.PREOP ---
Pre-operative Note COVID-19 Criteria for continued procedure: Possibility delay results in more complex future surgery or treatment, Continuing or worsening of significant or severe pain, Deterioration of the patient's condition or overall health, Delay expected to result in less-positive ultimate med/surg outcome and Non-surgical alternatives not available or appropriate per current SOC Interval Note History & Physical reviewed/Exam performed by Physician: Yes Changes to H&P: No
[2022-09-05] MEDS: LACTATED RINGERS 1,000 ML 21 ML IV ×2 (09:08→10:23)
[2022-09-05] MEDS: ACETAMINOPHEN IV 1,000 MG/100 ML VIAL 400 MG IV (09:14)
[2022-09-05] MEDS: CEFAZOLIN 2 GM/100 ML PREMIX 100 ML IV (09:25)
--- NOTE | 2022-09-05 10:00 | SUR.OPER ---
Lithotomy on padded OR bed, head on pillow, arms secured on padded arm boards at <90 degrees abduction. Legs secured in padded yellow fins stirrups.
--- NOTE | 2022-09-05 11:24 | PM.OP.1 ---
Operative Date/Time/Diagnoses Date of procedure: 09/05/22 Time of procedure: 11:24 Pre-op diagnosis: 1. 1.2 cm left renal calculus. 2. History of severe left renal colic. 3. Retained left ureteral stent. Post-op diagnosis: same Procedure & Clinicians Procedure: 1. Cystoscopy/left ureteroscopic laser lithotripsy. 2. Cystoscopy/left ureteral stent removal. 3. Cystoscopy/placement left ureteral stent (7 [place] by 22-32 cm multi-length). Same procedure as scheduled: Yes Indications: 1. 1.2 cm left renal pelvic calculus. 2. History of severe left renal colic. 3. Retained left ureteral stent. Surgeon: Joseph Guzman Click Yes if Unassisted: Yes Anesthesia Type: General Operative Notes Findings: 1. Urethra-there is an annular, approximately 15 [place] stricture and evidence of a previous healed false passage just distal to the stricture posteriorly at about 5 o'clock. The urethral stricture was negotiated with gentle to flexion of the 22 [place] panendoscope beak and then gentle advancement proximally. 2. External sphincter-coapted with normal overlying urothelium. 3. Wsbyougg-1-3.5 cm length and nonobstructing. 4. Bladder-expected edema and erythema in the vicinity of the left ureteral orifice. Intact coil of left retained stent. Closure Type: not applicable Specimen(s): none sent Applied: other (Seven [place] by 22-32 cm multi-length stent) Estimated Blood Loss (mL): 5 Blood products transfused: none Procedure in detail: The patient was positioned in supine and was administered general anesthesia. He was then repositioned into semi lithotomy and the lower abdomen, genitalia, and groin were then prepped and draped in sterile fashion. The 22 [place] panendoscope was then passed the lower urinary tract with the findings as described above. An alligator tooth foreign body grasper was then utilized to engage the distal end of the retained left ureteral stent. The engaged stent in panendoscope were then withdrawn to location just beyond the urethral meatus. A 0.35 hybrid guidewire was then advanced through the lumen of the stent and the wire was advanced proximally under direct and fluoroscopic guidance. The retained stent was then backloaded off the wire and discarded. Next, the dual-lumen ureteral access sheath was advanced over this hybrid guidewire. A 2nd 0.35 hybrid guidewire was advanced through the ancillary channel of the dual-lumen ureteral access sheath. The wire was advanced proximally under fluoroscopic guidance. Now the dual-lumen ureteral access sheath was backloaded off both wires. One wire was secured to the surgical drape. Over the other wire the flexible ureteral scope was advanced under fluoroscopic guidance to level of the level of the index calculus. The guidewire was then removed. The safety wire remained in place and secured to the operative drape. A 200 micron laser fiber was requested. All operating room personnel and patient were fitted with laser safety eyewear. Laser lithotripsy was then commenced. The stone was impacted and adherent to the substance of the left ureteral pelvic junction. The stone was painstakingly broken down using the laser. Finally the lateral and posterior portion of stone could be deflected in from its adherence to the ureteral wall by using the tip of the flexible endoscope to deflect and rotated for visualization and further laser access. Laser fragmentation of stone continued. The stone then migrated and to a lower pole calyx. Lithotripsy was continued and the stone was ultimately broken down and of fine powder, dust and small fragments. There was no further visual radiographic evidence of stone material within the collecting system. The flexible ureteral scope was then removed. The 22 [place] panendoscope was then front loaded on the safety wire and advanced into the bladder and the bladder contents drained. Over this wire a 7 [place] by 22-32 cm multi-length stent was advanced and positioned appropriately under direct and fluoroscopic guidance. A RETRIEVAL LINE WAS LEFT ATTACHED. The bladder was then drained completely and the panendoscope was removed. Retrieval lines were trimmed to appropriate length distal to the urethral meatus. The patient was then repositioned in supine, was awakened, transferred to [facility], and then transported recovery in stable condition. Complications: none Post-operative Condition: stable Disposition: PACU Plan for aftercare: Discharge home.
[2022-09-05] MEDS: FUROSEMIDE 20 MG/2 ML VIAL IV (11:54)
[2022-09-05] MEDS: OXYCODONE/ACETAMINOPHEN 5/325 TABLET 1 TAB PO (12:52)
== END 2022-09-05 13:20 | disposition home or self-care (01) ==
PROVIDERS: Referring Provider Specialist; Visit Provider Specialist
PROC: 0TF78ZZ Fragmentation in Left Ureter, Via Natural or Artificial Opening Endoscopic (ICD-10-PCS; CPT 52353; principal; 2022-09-05 09:45)
PROC: (CPT 52356; 2022-09-05 09:45)
DX: N20.0 Calculus of kidney (principal); Z46.6 Encounter for fitting and adjustment of urinary device
CPT/HCPCS: 52356; 74018; 76000; C1771; J0131; J0330; J0690; J1100; J1940; J2405; J2704; J3010